=== PATIENT | male | born 1955 | race Caucasian/White ===

== ENCOUNTER 2018-11-20 18:03 | Observation (INO) ==
--- NOTE | 2018-11-20 18:41 | ED.PDOC ---
General ED Provider: Dr. SHILO KRUSE Chief Complaint: Shortness of Air Stated Complaint: Severe SOB. Cough, uncontrollable at times with worsening dyspnea. Patient stated his symptoms started as "head cold" a week ago. Has associated sinus congestion, mild sore throat, cough (non productive). Stated he developed increasing SOB with activity yesterday. Hx COPD. with more frequent use of his rescue inhaler. State he experienced pain in his chest wall with cough. Stopped smoking 22 years ago. Has felt chilled. No Fever documented Time Seen by Physician: 18:20 Mode of Arrival: Walk-In Information Source: Patient Exam Limitations: No limitations Primary Care Provider: JASON KEN Nursing and Triage Documentation Reviewed and Agree: Yes Does patient meet sepsis criteria?: No System Inflammatory Response Syndrome: Not Applicable Sepsis Protocol: For patient's 13 years and over: Temp is 96.8 and below OR 101 and greater Pulse >90 BPM Resp >20/minute Acutely Altered Mental Status Are patient's symptoms suggestive of a new infection, such as: -Pneumonia -Skin, Soft Tissue -Endocarditis -UTI -Bone, Joint Infection -Implantable Device -Acute Abdominal Infection -Wound Infection -Meningitis -Blood Stream Catheter Infection -Unknown Respiratory Complaint Exam - Respiratory Complaint/Exam Onset/Duration: several days Symptoms Are: Still present Timing: Constant Initial Severity: Moderate Current Severity: Moderate Location: Throat, Chest Character: Reports: Dry cough, Bronchospastic cough Aggravating: Reports: Weather, Deep breaths, Recumbent position Alleviating: Reports: Bronchodilators, Upright position Associated Signs and Symptoms: Reports: Dyspnea, Chills. Denies: Rapid breathing, Fever, Chest pain, Pleuritic chest pain, Wheezing, Hemoptysis, Dizziness, Calf pain, Calf swelling, Edema, URI, Nasal congestion, Hoarseness, Sinus discomfort, Vomiting, Sore throat, Weight loss, Decreased oral intake, Increased thirst, Increased appetite, Increased urination History of Healthcare-Acquired Pneumonia: No Related Surgical History: Reports: None Pulmonary Embolism Risk Factors: None Cardiac Risk Factors: Reports: None Pseudomonas Risk Factors: Reports: None Tuberculosis Risk Factors: Reports: None Status Asthmaticus Risk Factors: Reports: None Home Oxygen Use: No Recent Stress Test: No Recent Echo/LV Function: No Current Antibiotic Use: No Current Asthma Medication Use: Yes Respiratory Distress: Mild Inadequate Respiratory Effort: Yes Dysphagia Present: No Stridor Present: No JVD Present: No Accessory Muscle Use: No Retractions: Not Present Diminished Breath Sounds: Yes Prolonged Respiration: Expiratory phase Sinus Tenderness: None Grunting Respirations: No Kussmaul Respirations: No Differential Diagnoses: COPD Exacerbation, Pulmonary Embolism, Mycoplasma, URI Non-Traumatic Chest Pain Syncope: EKG Performed Review of Systems - Review Of Systems Constitutional: Reports: Chills Eyes: Reports: No symptoms Ears, Nose, Mouth, Throat: Reports: No symptoms Respiratory: Reports: No symptoms, Cough, Orthopnea, Short of air, Wheezing Cardiac: Reports: No symptoms GI: Reports: No symptoms : Reports: No symptoms Musculoskeletal: Reports: No symptoms Skin: Reports: No symptoms Neurological: Reports: No symptoms Endocrine: Reports: No symptoms Hematologic/Lymphatic: Reports: No symptoms All Other Systems: Reviewed and Negative Past Medical History - Past Medical History Previously Healthy: Yes Endocrine: Reports: None Cardiovascular: Reports: None Respiratory: Reports: None Hematological: Reports: None Gastrointestinal: Reports: None Genitourinary: Reports: None Neuro/Psych: Reports: None Musculoskeletal: Reports: None Cancer: Reports: None - Surgical History General Surgical History: Reports: None - Family History Family History: Reports: None - Social History Smoking Status: Former smoker Hx Substance Use: No Alcohol Screening: None Physical Exam - Physical Exam Appearance: Ill-appearing, Obese Ill-appearing: Moderate Pain Distress: Moderate Eyes: LENA, EOMI, Conjunctiva clear ENT: Ears normal, Nose normal, Oropharynx normal Neck: Supple Respiratory: Airway patent, Breath sounds clear, Breath sounds diminished, Wheezes Cardiovascular: RRR, Pulses normal, No rub, No murmur GI/: Soft, Nontender, No masses, Bowel sounds normal, No Organomegaly Musculoskeletal: Normal strength, ROM intact, No edema, No calf tenderness Skin: Warm, Dry, Normal color Neurological: Sensation intact, Motor intact, Reflexes intact, Cranial nerves intact, Alert, Oriented Psychiatric: Affect appropriate, Mood appropriate Interpretation - EKG Interpretation Time of EKG #1: 19:02 Rhythm: Sinus Ectopy: PVCs, PACs ST Segment: Normal Interpretation: NSR with occas pvcs and pacs Physician Notification - Case Discussed Physician Notified: Dr Corbett-discussed case/transferred care/accepted Time of Notification: 19:15 Course - Course Hematology/Chemistry: 11/20/18 19:20 Orders, Labs, Meds: Lab Review 11/20/18 19:20 WBC 7.73 RBC 4.12 L Hgb 12.0 L Hct 36.5 L MCV 88.6 MCH 29.1 MCHC 32.9 RDW Coeff of Anais 15.0 H Plt Count 254 Immature Gran % (Auto) 0.3 Neut % (Auto) 64.3 Lymph % (Auto) 19.7 Murray % (Auto) 8.3 Eos % (Auto) 7.0 Baso % (Auto) 0.4 Immature Gran # (Auto) 0.0 Neut # (Auto) 5.0 Lymph # (Auto) 1.5 Murray # (Auto) 0.6 Eos # (Auto) 0.5 Baso # (Auto) 0.0 Orders Category Date Time Status ABG DRAW REQUEST Routine CARDIO 11/20/18 18:43 Ordered ABG DRAW REQUEST Stat CARDIO 11/20/18 18:38 Ordered ABG DRAW REQUEST Stat CARDIO 11/20/18 18:43 Ordered ABG DRAW REQUEST Stat CARDIO 11/20/18 18:45 Ordered EKG-(ED ONLY) Stat CARDIO 11/20/18 18:38 Ordered NEBULIZER TREATMENT Stat CARDIO 11/20/18 18:41 Ordered NEBULIZER TREATMENT Stat CARDIO 11/20/18 18:46 Ordered OXYGEN Routine CARDIO 11/20/18 18:38 Ordered IV [ED IV/MEDIPORT/POWERPORT] .ONCE EMERGENCY 11/20/18 18:38 Active ABG Stat LAB 11/20/18 18:38 Ordered ABG Stat LAB 11/20/18 18:45 Ordered BLOOD CULTURE (ED ONLY) Stat LAB 11/20/18 19:20 Received CBC W/ AUTO DIFF Stat LAB 11/20/18 19:20 Completed CMP [COMPREHENSIVE METABOLIC PANEL] Stat LAB 11/20/18 19:20 Received D-DIMER Stat LAB 11/20/18 19:20 Received ESR Stat LAB 11/20/18 19:20 Received FLU A & B MOLECULAR [FLU A/B MOLECULAR] Stat LAB 11/20/18 19:20 Received LACTIC ACID Stat LAB 11/20/18 19:20 Received MAGNESIUM Stat LAB 11/20/18 19:20 Received NT-PROBNP Stat LAB 11/20/18 19:20 Received PARTIAL THROMBOPLASTIN TIME Stat LAB 11/20/18 19:20 Received PT WITH INR Stat LAB 11/20/18 19:20 Received RAPID STREP SCREEN [MOLECULAR GROUP A STREP] Stat LAB 11/20/18 19:20 Received RSV Stat LAB 11/20/18 19:20 Received SPUTUM CULTURE Stat LAB 11/20/18 18:41 Uncollected TROPONIN I Stat LAB 11/20/18 19:20 Received UA [URINALYSIS C & S IF INDICATED] Stat LAB 11/20/18 18:57 Ordered 0.9 % Sodium Chloride [Saline Flush] MEDS 11/20/18 18:42 Active 1 syr IVF PRN PRN Budesonide [Pulmicort 0.5 mg/2 ml] MEDS 11/20/18 18:42 Discontinued 1 vial NEB ONCE STA Hydrocortisone Sod Succ/Pf [Solu-Cortef 250 mg] MEDS 11/20/18 19:04 Discontinued 125 mg IVP ONCE STA Ipratropium/Albuterol Neb [Duoneb] MEDS 11/20/18 18:42 Discontinued 1 vial NEB ONCE STA Sodium Chloride 0.9% [Sodium Chloride] 1,000 ml MEDS 11/20/18 18:42 Active IV 125 mls/hr CHEST, 1V AP ONLY Stat RADS 11/20/18 18:38 Taken Medications Generic Name Dose Route Start Last Admin Trade Name Freq PRN Reason Stop Dose Admin Sodium Chloride 1,000 mls @ 125 mls/hr 11/20/18 18:42 11/20/18 19:12 Sodium Chloride IV 11/21/18 02:41 125 mls/hr .Q8H STA Administration Sodium Chloride 1 syr 11/20/18 18:42 11/20/18 19:12 Saline Flush IVF 1 syr PRN PRN Administration To flush IV Discontinued Medications Generic Name Dose Route Start Last Admin Trade Name Freq PRN Reason Stop Dose Admin Albuterol/Ipratropium 1 vial 11/20/18 18:42 Duoneb NEB 11/20/18 18:43 ONCE STA Budesonide 1 vial 11/20/18 18:42 Pulmicort 0.5 Mg/2 Ml NEB 11/20/18 18:43 ONCE STA Hydrocortisone Sodium Succinate 125 mg 11/20/18 19:04 11/20/18 19:14 Solu-Cortef 250 Mg IVP 11/20/18 19:05 125 mg ONCE STA Administration Vital Signs: Temp Pulse Resp BP Pulse Ox 11/20/18 18:04 98.2 F 82 20 159/89 H 92 L Departure - Departure Allergies/Adverse Reactions: Allergies hydrocodone [From Lortab] Adverse Reaction (Verified 02/11/18 13:35) rofecoxib [From Vioxx] Adverse Reaction (Verified 02/11/18 13:35) tramadol Adverse Reaction (Verified 02/11/18 13:35)
[2018-11-20] MEDS ORDERED: PULMICORT 0.5 MG/2 ML NEB STA (18:42)
[2018-11-20] MEDS ORDERED: SODIUM CHLORIDE 1,000 ML IV STA (18:42)
[2018-11-20] MEDS ORDERED: DUONEB NEB STA (18:42)
[2018-11-20] MEDS ORDERED: SOLU-CORTEF 250 MG IVP STA (19:04)
--- NOTE | 2018-11-20 19:53 | DI ---
EXAM: Single view of the chest. History: Short of breath and cough . Comparison: Chest radiograph 05/24/2016 Findings: Heart size is normal. Left lower lobe subsegmental atelectasis or pneumonia. No apprecia ble pleural fluid and no pneumothorax. No acute osseous abnormalities. Impression: Left lower lobe subsegmental atelectasis or pneumonia
[2018-11-20] MEDS ORDERED: TYLENOL PO PRN (21:11)
[2018-11-20] MEDS ORDERED: DUONEB NEB PRN (21:11)
[2018-11-20 22:34] VITALS: BMI 36.3
[2018-11-21] MEDS: SODIUM CHLORIDE 0.9%-KCL 20 MEQ 1,000 ML IV SCH ×3 (04:35→17:31)
[2018-11-21] MEDS: SOLU-MEDROL 125 MG IVP SCH ×3 (04:38→20:13)
[2018-11-21] MEDS: DUONEB NEB SCH ×4 (06:13→19:44)
[2018-11-21] MEDS: VIT C PO SCH (08:51)
[2018-11-21] MEDS: VIT A PO SCH (08:51)
[2018-11-21] MEDS: COPPER PO SCH (08:51)
[2018-11-21] MEDS: ZINC PO SCH (08:51)
[2018-11-21] MEDS: VIT E PO SCH (08:51)
[2018-11-21] MEDS: SYMBICORT 160-4.5 MCG INHALER IH SCH ×2 (08:51→20:22)
[2018-11-21] MEDS: PRAVACHOL PO SCH (08:53)
[2018-11-21] MEDS: MULTIVITAMIN TABLET PO SCH (08:53)
[2018-11-21] MEDS: HYDROCHLOROTHIAZIDE PO SCH (08:53)
[2018-11-21] MEDS: PRADAXA PO SCH ×2 (08:57→20:14)
[2018-11-21] MEDS ORDERED: LOVENOX SUBCUT SCH (09:00)
[2018-11-21] MEDS ORDERED: VITAMIN D PO SCH (09:00)
[2018-11-21] MEDS ORDERED: NON-FORMULARY MEDICATION (Dabigatran Etexilate Mesylate [Pradaxa] 150 MG) PO SCH (09:00)
[2018-11-21] MEDS ORDERED: PROTONIX PO SCH (09:00)
--- NOTE | 2018-11-21 10:32 | US ---
EXAM: Ultrasound venous Doppler right and left lower extermity HISTORY: Swelling COMPARISON: None TECHNIQUE: Venous duplex ultrasound of the right and left lower extremity was performed using color, christianson-scale, and Doppler flow imaging. FINDINGS: There is normal color flow and compression of the right and left common femoral, greater s aphenous, profunda femoral, femoral, popliteal, peroneal, posterior tibial, and anterior tibial veins without evidence of intraluminal thrombus. No reflux is identified. IMPRESSION: No right or left lower extremity deep venous thrombosis.
[2018-11-21] MEDS: PROTONIX PO SCH (15:49)
--- NOTE | 2018-11-21 16:54 | CT ---
EXAM: CT abdomen pelvis without contrast HISTORY: Microscopic hematuria COMPARISON: None TECHNIQUE: CT abdomen pelvis performed without intravenous contrast. Coronal and sagittal reformatt ed images obtained. FINDINGS: Mild bibasilar atelectasis. Mild emphysematous change. No free air. No acute abnormalit ies of the bones. Degenerative change in the spine. Heart normal in size. Liver diffusely decrease d attenuation. Patient status post cholecystectomy. Pancreas unremarkable. Spleen unremarkable. A drenals unremarkable. Aorta normal in caliber. Mild atherosclerosis. Bladder unremarkable. Small fat-containing left inguinal hernia. No lymphadenopathy or ascites. Small hiatal hernia. No dilate d loops small bowel. Appendix not visualized. Colonic diverticulosis. Multiple bilateral nonobstru cting renal calculi measuring up to 8 mm. Right kidney and 10 mm. Left kidney. No hydronephrosis. Nonspecific bilateral perinephric stranding, may reflect senescent change. No calculi visualized in the normal course of the ureters. Bladder unremarkable. Small to moderate fat-containing periumbili swapna hernia. IMPRESSION: 1. Bilateral nephrolithiasis. No hydronephrosis. 2. Nonspecific bilateral perinephric stranding, may reflect senescent change. 3. Colonic diverticulosis. 4. Hepatic steatosis.
[2018-11-21] MEDS: CYMBALTA PO SCH (17:05)
[2018-11-21] MEDS: BACTRIM DS 800/160 MG PO SCH ×2 (17:30→20:15)
[2018-11-21] MEDS ORDERED: TYLENOL PO PRN (19:21)
[2018-11-21] MEDS: ROBITUSSIN DM SYRUP PO PRN (20:14)
[2018-11-21] MEDS: ATIVAN PO PRN (23:21)
[2018-11-22] MEDS: DUONEB NEB SCH ×4 (04:57→20:36)
[2018-11-22] MEDS: ROBITUSSIN DM SYRUP PO PRN ×3 (05:35→20:40)
[2018-11-22] MEDS: SOLU-MEDROL 125 MG IVP SCH ×2 (05:35→13:26)
[2018-11-22] MEDS: PROTONIX PO SCH ×2 (05:35→14:53)
[2018-11-22] MEDS: ATIVAN PO PRN ×2 (05:35→22:48)
[2018-11-22] MEDS: SYMBICORT 160-4.5 MCG INHALER IH SCH ×2 (08:35→20:39)
[2018-11-22] MEDS: BACTRIM DS 800/160 MG PO SCH ×2 (08:38→20:39)
[2018-11-22] MEDS: HYDROCHLOROTHIAZIDE PO SCH (08:39)
[2018-11-22] MEDS: MULTIVITAMIN TABLET PO SCH (08:39)
[2018-11-22] MEDS: ZINC PO SCH (08:40)
[2018-11-22] MEDS: SODIUM CHLORIDE 0.9%-KCL 20 MEQ 1,000 ML IV SCH (08:40)
[2018-11-22] MEDS: VIT E PO SCH (08:40)
[2018-11-22] MEDS: COPPER PO SCH (08:40)
[2018-11-22] MEDS: VIT C PO SCH (08:40)
[2018-11-22] MEDS: VIT A PO SCH (08:40)
[2018-11-22] MEDS: PRAVACHOL PO SCH (08:40)
[2018-11-22] MEDS: PRADAXA PO SCH ×2 (08:41→20:39)
--- NOTE | 2018-11-22 13:35 | STRESSMOD ---
Date of Test: 11/22/18 Ordering Physician: DR. GEORGE LOPEZ, HOSPITALIST Occupation: [employer] Reason for Exam: SOA, HTN Smoking History: QUIT 22 YRS AGO Height: 71" Weight: 261 LBS Current Medications: DUONEB, SYMBICORT, PRADAXA, CYMBALTA, HCTZ, PROTONIX, PRAVACHOL Resting EKG: SINUS RHYTHM, PVC'S, NO ACUTE CHANGES Target Heart Rate: 135/159 S-T SEGMENT STAGE MPH/GRADE HEART RATE BPM BLOOD PRESSURE mmhg RHYTHM +/- ELEVATION DEPRESSION SYMPTOMS At Rest 110 BPM 132/60 MMHG SR X NONE 1 1.7/0% 125 BPM 130/60 MMHG SR X NONE 2 1.7/5% 3 1.7/10% 4 2.5/12% 5 3.4/14% Immediately After 133 BPM SR X SHORT OF AIR Minutes Post Exercise 2:00 108 BPM 140/60 MMHG SR X NONE Minutes Post Exercise 5:00 112 BPM 140/60 MMHG SR X NONE DURATION OF EXERCISE: 4:41 MAXIMUM HEART RATE REACHED: 133 BPM REASON FOR TERMINATION: SHORT OF AIR 87% OXYGEN SATURATION WITH EXERCISE ON ROOM AIR METS 3.8 INTERPRETATION: 1. TEST NEGATIVE FOR ISCHEMIC ST-T WAVE CHANGES 2. NO CHEST PAIN OR DISCOMFORT 3. HYPOXEMIA AT REST AND WITH EXERCISE 4. PVC'S LESS FREQUENT WITH EXERCISE 5. BLOOD PRESSURE RESPONSE: NORMAL NORMAL LEFT VENTRICULAR CONTRACTILITY--RESTING AND POST EXERCISE 2 "D" "M" MODE ECHO: LEFT VENTRICULAR HYPERTROPHY/ NORMAL LEFT VENTRICULAR CONTRACTILITY AND ENLARGED RV/LA CAVITIES MTDD
--- NOTE | 2018-11-22 14:48 | CONS ---
DATE OF CONSULTATION: 11/21/18 REASON FOR CONSULTATION: Severe shortness of air with exertion. Cough. Chest pain with cough. HISTORY OF PRESENT ILLNESS: 63 year old white male came to the emergency room with shortness of air and also had cough, congestion and worsening of his head cold. It started probably a week prior to hospitalization. The patient also had some sinus congestion and sore throat with non-productive cough. The patient has history of COPD and uses rescue inhaler. The patient's primary care Blake Oliva Nurse Practitioner. The patient used to go to Dr. Ortiz before. REVIEW OF SYSTEMS: CONSTITUTIONAL: No night sweats. Fatigue and weakness. No fever or chills. HEENT: Eyes: No visual changes. No eye pain. No eye discharge. ENT: Sinus drainage. No epistaxis. No sinus pain. No sore throat. No odynophagia. No ear pain. No congestion. RESPIRATORY: Dry cough and congestion. No hemoptysis. Shortness of breath on exertion, unable to lie flat. CARDIOVASCULAR: No angina symptoms. No CHF symptoms. No atypical chest pain for CAD. No palpitations. No orthopnea. GASTROINTESTINAL: No abdominal pain. No nausea or vomiting. No diarrhea or constipation. No hematemesis. No hematochezia. Reflux type of symptoms at times. GENITOURINARY: No urgency. No frequency. No dysuria. No hematuria. No obstructive symptoms. No discharge. No pain. No significant abnormal bleeding. MUSCULOSKELETAL: History of neck surgery. . INDEPENDENT FILM MAKER: No blackout, no dizziness, no headache. . PSYCHIATRIC: Not anxious. History of depression. No suicidal thoughts. No homicidal thoughts. SKIN: No rash. No lesions. No wounds. ENDOCRINE: No unexplained weight loss. No weight gain. HEMATOLOGIC/LYMPHATIC: No anemia. No purpura. No petechiae. No prolonged or excessive bleeding. No palpable lymph nodes. MEDICATIONS: Albuterol ProAir HFA Symbicort Pradaxa Duloxetine Pantoprazole Pravastatin ALLERGIES: Hydrocodone Rofecoxib Tramadol PAST MEDICAL HISTORY: Chronic lung disease Pulmonary embolism (on Pradaxa) Reflux disease Dyslipidemia Asthma COPD Hypertension Depression PAST SURGICAL HISTORY: Hernia repair Cholecystectomy Appendectomy C-spine surgery SOCIAL/PERSONAL/FAMILY HISTORY: The patient is and lives with the . Nonsmoker, now. Quit smoking 1996. He wears two liters of oxygen at night. Does all activity of daily living. Still working more than 40 hours a week. Family History: [place]. PHYSICAL EXAMINATION: GENERAL: The patient is oriented to time, place and person. VITAL SIGNS: Temperature 97.9, pulse 85, respiratory rate 18, blood pressure 145/86, pulse ox 95% on room air. The patient weights 261 pounds and BMI is 36. HEENT: Head normocephalic, atraumatic. Eyes: Extraocular muscles are intact. Pupils are equal, round and reactive to light and accommodation. Ears: No lesions. Nose appeared normal. Throat: No exudate or erythema. NECK: Supple. No JVP, no carotid bruit. No lymphadenopathy or thyromegaly. LUNGS:Decreased breath sounds with mild expiratory wheeze. Percussion note normal. Chest symmetrical. HEART: PMI not palpable on auscultation. S1, S2, no S3. No murmurs. No cyanosis or clubbing. No ascites. Pulses: Dorsalis pedis and posterior tibial pulses +2 bilaterally. ABDOMEN: Soft. Nontender. Bowel sounds active. No CVA tenderness. No mass felt. EXTREMITIES: No edema. Full range of motion of all extremities, equal. NEUROLOGIC: No focal deficit. Cranial nerves II through XII are grossly intact. No headache, no double vision or headache. SKIN: Not dry. Intact. Turgor - normal. LYMPHATIC: No palpable lymph nodes/no lymphedema. MUSCULOSKELETAL: Normal joints with no swelling. Muscle tone is normal. LABS: Hgb 12.7, 38, WBC 9,000 normal differential, creatinine 0.6, BUN 11, potassium 3.6, GFR estimated 132cc per minute, TSH normal. EKG sinus rhythm with PVC and PAC. ESR 38. D. dimer 300.46. ProBNP 58.700. Triglycerides 130. Cholesterol 172, LDL 114, HDL 32.5. Flu A and B negative. Room Air AB% saturation, Hc03 27.1. PH 7.432, pc02 40.7, p02 73. Troponin less than 0.012. Chest x-ray LLL subsegmental atelectasis or pneumonia. ASSESSMENT: 1. COPD/exacerbation. 2. Shortness of breath from COPD/sedentary lifestyle. 3. BMI greater than 30. 4. History of pulmonary embolism 5. Dyslipidemia. RECOMMENDATIONS: 1. Agreed with telemetry. 2. Will do echocardiogram to evaluate LV function. 3. Also do stress echo as the patient has risk factors like sedentary lifestyle, obesity, dyslipidemia, family history of heart disease. 4. Will also do PFT. 5. BNP is okay, will follow. 6. Lipid profile. 7. Counseling for weight loss done. The patient's conditions seems to be stable. Thanks for referral. Will follow. MTDD
[2018-11-22] MEDS: CARDIZEM PO SCH ×2 (14:53→20:39)
[2018-11-22] MEDS: CYMBALTA PO SCH (16:33)
[2018-11-23] MEDS: DUONEB NEB SCH ×3 (04:53→13:59)
[2018-11-23] MEDS: PROTONIX PO SCH ×2 (05:42→15:17)
[2018-11-23] MEDS: ROBITUSSIN DM SYRUP PO PRN (06:34)
[2018-11-23] MEDS: SYMBICORT 160-4.5 MCG INHALER IH SCH (09:22)
[2018-11-23] MEDS: VIT E PO SCH (09:23)
[2018-11-23] MEDS: COPPER PO SCH (09:23)
[2018-11-23] MEDS: VIT A PO SCH (09:23)
[2018-11-23] MEDS: ZINC PO SCH (09:23)
[2018-11-23] MEDS: VIT C PO SCH (09:23)
[2018-11-23] MEDS: MULTIVITAMIN TABLET PO SCH (09:24)
[2018-11-23] MEDS: PRAVACHOL PO SCH (09:24)
[2018-11-23] MEDS: CARDIZEM PO SCH ×2 (09:24→15:17)
[2018-11-23] MEDS: BACTRIM DS 800/160 MG PO SCH (09:24)
[2018-11-23] MEDS: HYDROCHLOROTHIAZIDE PO SCH (09:24)
[2018-11-23] MEDS: PRADAXA PO SCH (09:29)
--- NOTE | 2018-11-23 13:04 | PN ---
DATE OF SERVICE: 11/22/2018 SUBJECTIVE: 63 year old male who was admitted to the hospital because of increasing shortness of breath worse the day before, however the patient declined. The patient was driving home when he experienced more shortness of breath prompting him to come to the emergency room. The patient also had repetitive cough and this began about a week ago with mild sore throat. No fever. The patient does have chest pain with the coughing. He stopped smoking some 20 years ago. This patient was admitting 11/20/2018. The patient seemed to have problems sleeping, most likely due to the Methylprednisolone given every 8 hours IV. He seemed restless and with nightmare dreams. The Methylprednisolone had been discontinued. The dose on at 1:26 p.m. was not given. The patient did undergo stress echo today and the stress test was negative for ischemia. During the course of the exercise the patient was noted to have desaturation with an oxygen saturation of 87. Three step test also reconfirmed that. This patient may need some home oxygen for now until the other medical conditions have improved. Most significant would be the obesity. This patient's BMI is 36.4. He is 261 pounds at 5'11". The patient was able to walk for four minutes and 41 seconds. LUNGS: Clear to auscultation, although diminished and no wheezing at all. HEART: Normal sinus rhythm. NECK: No masses, no bruit. ABDOMEN: Markedly protuberant, soft with no significant tenderness. LABS: Arterial blood gases done at rest with FIO2 21%, oxygen saturation 92, pH 7.415, PCO2 32.4, PO2 63.0, HCO3 20.8, total CO2 22, base excess minus 4, sodium is slightly lower, but no clinical significance, as well as potassium. Blood sugar elevated 398.9. It was 132.5 on admission. This patient may have an insulin resistance, will measure fasting Insulin. We will also get an A1C to help determine. C-reactive protein is now down to 8.35 from 25. This patient has some tachycardia and Dr. Hewitt, Consulting Freight Adjuster, initiated him on Cardizem 45 mg twice a day. He did not feel that the patient should go home today and considered sending him tomorrow. I had discussed this with the patient with regards to staying. He was admitted under observation, but now he is over that time. MTDD
--- NOTE | 2018-11-23 13:22 | PN ---
DATE OF VISIT: 11/23/18 The patient is alert and claimed to be feeling better. He is still using 2 liters of nasal oxygen. LUNGS: Clear to auscultation in both sides, somewhat diminished. HEART: Normal sinus rhythm. ABDOMEN: Protuberant. He still did not sleep very well in spite of the fact that the Methylprednisolone had been discontinued. It make a few more days probably for that adverse effect from the Methylprednisolone. His was asking whether he should take Benadryl in order to help him sleep and I did tell her that Benadryl probably is not a better choice. He should try over the counter Melatonin at 10 mg at bedtime. There may still be a continuation of the adverse effects of the Methylprednisolone. His WBC is now done to 19,650 and may still be the results of Methylprednisolone. His WBC was normal on admission and the next day. It did rise to 21,750 on the , yesterday. Manual differential yesterday showed bans at 3%, normal. Neutrophils % is 88 and lymphocytes 5. Fasting blood sugar today is down to 214 and A1C is 6.33. I still do not have the results of the fasting Insulin. Total protein and Liver panel normal. I did also tell him that his repeat urinalysis still shows blood, but no other abnormalities. He needs to see a kidney doctor. He is also scheduled to see Dr. Montejo, [facility]. His procalcitonin yesterday was less than 0.05, the same as admission. This patient will be prescribed nasal oxygen at 2 liters per minute and also during the night time. He does not need it during the day. He may need the oxygen if he has exertional dyspnea or to prevent exertional dyspnea. The RBC had risen to 50 to 100 from 30 to 50. The patient has fatty liver on CT scan. VITAL SIGNS: At 10 a.m. today, temperature 98.5, pulse 82, earlier it was 87, blood pressure 133/85, respiratory rate 18, oxygen saturation 94. I don't know if he had oxygen at that time or not since it was not noted on the chart. Again, this patient is advised to lose weight. Follow a simpler diet of salad with meat, either chicken, pork, beef, turkey, about 6-8 ounces every meal, lunch and supper. No sodas, no wheat of any kind, bread or pasta. He should avoid [place] potato. He may use sweet potato instead of the white potato. This patient is scheduled to see Dr. Hewitt and I will see him after that. I had indicated to Dr. Hewitt that he would likely change to his services and I don't have any problem, however the patient, as well as the had not indicated to me that they want to do that at this time. MTDD
[2018-11-23] MEDS: CYMBALTA PO SCH (17:17)
[2018-11-23 18:28] VITALS: BP 124/76; TEMP 98.3
--- NOTE | 2018-11-26 12:35 | ECHO2D ---
Date of Exam: 11/22/18 Ordering Physician: DR. GEORGE LOPEZ, HOSPITALIST/ DR. ZULEYKA WILSON Room #: 121 Reason for Echo: SOB, COPD, H/O PULMONARY EMBOLISM M-Mode Normal Adult Results LV Dimensions Normal Adult Results AoV Opening excursions >1.6 >1.6 LVEDD-base- 3.5-5.8 4.4 Ao root dimensions 2.0-3.7 3.4 LVESD-base- 3.1-4.6 L. Atrium dimensions 1.9-3.8 4.2 Post. Wall thickness 0.8-1.1 1.2 IV septum (thickness) 0.7-1.2 1.3 Post. Wall excursion 0.72-1.3 NORMAL Septal motion NORMAL Systolic motion R. Ventricular cavity 1.5-2.0 3.8 LVEF 60% >60% Paradoxical septal wall motion NORMAL 2-D : 2-D M Mode Echocardiogram was performed using apical four chamber and left parasternal long and short axis views. Mitral, tricuspid and aortic valves appear to be normal. Contractility of the left ventricle seems to be normal, so is the cavity size. ENLARGED LEFT ATRIAL AND RIGHT VENTRICLE CAVITIES. Aortic root appears to be normal. There is no pericardial effusion. There is no thrombus noted in the left ventricle or left atrial cavity. No mitral valve prolapse noted. M-MODE: MV: NORMAL AV: NORMAL TV: NORMAL PV: CHAMBER SIZE: ENLARGED LEFT ATRIAL AND RIGHT VENTRICLE CAVITIES WALL MOTION: NORMAL PERICARDIUM: NORMAL INTERPRETATION: 1. LEFT VENTRICULAR HYPERTROPHY WITH ENLARGED LEFT ATRIAL CAVITY (4.2 CM) 2. ENLARGED RIGHT VENTRICLE CAVITy 3. NORMAL LEFT VENTRICULAR CONTRACTILITY 4. NORMAL VALVES MTDD
--- NOTE | 2018-11-26 12:38 | ECHOSTRESS ---
Date of Exam: 11/22/18 Ordering Physician: DR. GEORGE LOPEZ, HOSPITALIST/ DR. ZULEYKA WILSON Reason for Echo: SOB, PULMONARY EMBOLISM, COPD, STRESS TEST --NO ISCHEMIA M-Mode Normal Adult Results LV Dimensions Normal Adult Results AoV Opening excursions >1.6 LVEDD-base- 3.5-5.8 Ao root dimensions 2.0-3.7 LVESD-base- 3.1-4.6 L. Atrium dimensions 1.9-3.8 Post. Wall thickness 0.8-1.1 IV septum (thickness) 0.7-1.2 Post. Wall excursion 0.72-1.3 Septal motion Systolic motion R. Ventricular cavity 1.5-2.0 LVEF 60% Paradoxical septal wall motion 2-D: NORMAL LEFT VENTRICULAR CONTRACTILITY--RESTING AND POST EXERCISE M-MODE: MV: AV: TV: PV: CHAMBER SIZE: WALL MOTION: NORMAL LEFT VENTRICULAR CONTRACTILITY--RESTING AND POST EXERCISE PERICARDIUM: INTERPRETATION: 1. NORMAL LEFT VENTRICULAR CONTRACTILITY--RESTING AND POST EXERCISE MTDD
--- NOTE | 2018-11-29 14:55 | HP ---
DATE OF SERVICE: 11/20/18 CHIEF COMPLAINT: Cough and shortness of breath HISTORY OF PRESENT ILLNESS: The patient began experiencing common cold symptoms with nasal congestion and fullness of the head. He later developed a sore throat. No fever but with increasing shortness of breath worse the day before. mentioned about bringing him to the emergency room but the patient declined. He was driving home on the day of presentation to the emergency room from his work and experienced more shortness of breath prompting the emergency room visit. The patient does have pain on the chest wall with cough but no chest pain. He works for [employer]. He doesn't have very much chemical exposure as he described his work. He was seen at 6:04 in the emergency room. Labs at 7:20 11/20/18 normal WBC 7,730, slightly lower RBC, Hgb and hct slight to moderate. MCV 88.6, MCH 29.1, RDW 15 slightly above upper normal of 14.8. D-Dimer 300.46, coagulation profile is normal, arterial blood gasses FiO2 21, oxygen saturation 95, pH 7.432, pCO2 40.7, pO2 73.0, HCO3 27.1, Total CO2 28, base excess 3+. Chemistry has some slight abnormalities but not significantly significant. Potassium 3.06, blood sugar 132.5, C reactive Protein 25.14. BUN 58.7, Procalcitonin normal less than 0.05. Chest x-ray left lower lobe some segmental atelectasis and or pneumonia. The patient while in the ER receiving Pulmicort Nebulizer at 6:42pm and Hydrocortisone Succinate 125mg at 7:04. Also had IV of normal saline plus Nebulizer consisting of Albuterol Ipratropium (DUO NEBS). The ER physician felt that the patient needed further observation and so he was admitted to the hospital and there observation. PAST MEDICAL HISTORY/PAST SURGICAL HISTORY: Hypertension, on medication History of COPD and had pulmonary function tests and was also told that he had asthma by the previous family provider History of pulmonary emboli, multiple but no signs of DVT. He is on anticoagulation from the PE; Pradaxa 150mg twice a day Previous cervical fusion Appendectomy Cholecystectomy Hernia surgery Finger surgery Foreign body on his eye and that was removed. He did see a doctor . FAMILY HISTORY: Brother had lung carcinoma as well as diabetes and that brother had a stroke Father had renal cancer. History of Parkinsonism Mother Myocardial infarct and from the myocardial infarction Members of the family had hypertension SOCIAL HISTORY: The patient is and works for [employer] and traveling. He had stopped smoking some 22 years ago. He used to be very skinny according to his but had gained weight since he had stopped smoking. He is now 261 pounds, BMI 36.4. MEDICATIONS: Multivitamins plus minerals plus lycopene 1 daily Dabigatran 150mg twice a day Protonix 40mg twice a day Hydrochlorothiazide 12.5mg daily Pravastatin 40mg daily Symbicort 160/4.5mg one puff twice a day His and him claim that he does two puffs twice a day Vitamin A/Vitamin C and Vitamin E plus Zinc and Copper Vision formula one capsule daily Cymbalta 30mg every evening Vitamin D three 2,000 units daily Albuterol Sulfate two puffs Q 4 hours PRN ALLERGIES: Hydrocodone Tramadol Rofecoxib REVIEW OF SYSTEMS: CONSTITUTIONAL: The patient has some fatigue because of the shortness of breath but no fever, no chills and no vomiting. DOCTOR OF PHARMACY: The patient did complain of headache but denies any visual disturbances. The weakness of greater left to right sides and no stiffness of the neck. VISUAL SYSTEM: No blurred vision, double vision or loss of vision. AUDITORY: Denies any ringing of the ears, no significant loss of hearing, pain or drainage. RESPIRATORY: The patient has cough and repetitive, nonproductive. Chest wall pain. Shortness of breath but no cyanosis. CARDIOVASCULAR: The patient denies any chest pain or chest tightness. The patient does have cough with some shortness of breath on exertion GI: The patient has no nausea or vomiting or diarrhea. He did have a history of GERD and is taking Protonix 40mg twice a day : The patient initially had no problems with urination but did complain of some burning in the course of urination but no fever. No frequency. Denies any hesitancy or urgency. MUSCULOSKELETAL: The patient does have neck pain and had previous surgery. He is taking Tramadol for the pain. INTEGUMENT: The patient has no rash or pruritus. No ecchymosis ENDOCRINE: The patient denies any polyuria or polydipsia. He is however obese. HEMATOLOGY: Denies any prolonged bleeding after surgical intervention or injury. He did have a history of pulmonary emboli without any demonstrable thrombosis in the lower extremities or upper. PSYCHIATRIC: The patient has history of depression on Cymbalta. Affect appears to be normal and reasoning is good. PHYSICAL EXAMINATION: GENERAL: We have a 63 year old male admitted to the hospital by the emergency room because of cough repetitive and short of breath. VITAL SIGNS: Temperature 97.9 oral, pulse 93, blood pressure 157/89 left arm, respiratory rate 22, oxygen saturation 94 at room air. 5'11, 261 pounds. The entry in the emergency room was 5'8 and 5'7 inches. HEAD: Unremarkable, scalp has no active dermatitis. FACE: Symmetrical and equal with no facial weakness. No tenderness in the frontal and maxillary sinus areas to palpation under pressure. EYE: Pupils are about 3mm in size, round and reactive. Conjunctivae slightly pale. MOUTH: Unremarkable. No inflammatory changes in the posterior phalangeal tena and no exudate. NECK: No adenitis or adenopathies and no tenderness. No bruit. CHEST: Essentially symmetrical and equal with limited expansion. LUNGS: Breath sounds are heard in both sides with rales or wheezing but diminished HEART: Heart is audible and regular, slightly tachycardiac, no murmurs. ABDOMEN: Markedly protuberant, soft with no significant tenderness. No guarding, bowel sounds are active. No masses palpable. No bruit. EXTERNAL GENITALIA: Not examined LOWER EXTREMITIES: Essentially symmetrical and equal. Anterior tibials are palpable. UPPER EXTREMITIES: Symmetrical and equal. ASSESSMENT: 1. Asthma with exacerbation 2. COPD 3. History of pulmonary emboli, multiple on Pradaxa 4. Hypertension on medication 5. Obesity, BMI 36.4 6. History of GERD on Pantoprazole 40mg twice a day 7. Moderate Anemia 8. History of Depression TIME SPENT: GREATER THAN 65 MINUTES MTDD
--- NOTE | 2018-11-30 08:59 | PN ---
CODING FOR BILLING The patient was seen a total of four times. He was a new consult, never seen him before. The coding is different for it. The first day is level 5, the rest intermediate for followups. DALE
--- NOTE | 2018-11-30 09:29 | CONS ---
DATE OF SERVICE: 11/22/18 CONSULT FOLLOWUP SUBJECTIVE: The patient was on consultation for shortness of breath evaluation. The patient had stress echo performed which was negative for ischemia but the patient's oxygen saturation dropped from 90% to 87%. He was extremely short of breath. There was no evidence of ischemic by ST-T waves. The PVCs were less frequent. The patient is going to need oxygen at home 2L. His PFT showed 50% of FEV1 with moderate restrictive disease. His BMI is 36, strongly advised to lose weight and advised to increase activity. Echo showed LVH with enlarged LA cavity and enlarged RV cavity, normal LV contractility noted. REVIEW OF SYSTEMS: (All negative at rest) CONSTITUTIONAL: No night sweats. No fatigue, malaise, lethargy. No fever or chills. HEENT: Eyes: No visual changes. No eye pain. No eye discharge. ENT: No runny nose. No epistaxis. No sinus pain. No sore throat. No odynophagia. No ear pain. No congestion. RESPIRATORY: No cough, no congestion. No hemoptysis. CARDIOVASCULAR: No angina symptoms. No CHF symptoms. No atypical chest pain for CAD. No palpitations. No shortness of breath. GASTROINTESTINAL: No abdominal pain. No nausea or vomiting. No diarrhea or constipation. No hematemesis. No hematochezia. GENITOURINARY: No urgency. No frequency. No dysuria. No hematuria. No obstructive symptoms. No discharge. No pain. No significant abnormal bleeding. MUSCULOSKELETAL: No musculoskeletal pain. No joint swelling. No arthritis. NEUROLOGICAL: No headache. No neck pain. No syncope. No seizures. No dizziness. PSYCHIATRIC: Not anxious. No depression. No suicidal thoughts. No homicidal thoughts. SKIN: No rash. No lesions. No wounds. ENDOCRINE: No unexplained weight loss. No weight gain. HEMATOLOGIC/LYMPHATIC: No anemia. No purpura. No petechiae. No prolonged or excessive bleeding. No palpable lymph nodes. PHYSICAL EXAMINATION: HEENT: Head normocephalic, atraumatic. Eyes: Extraocular muscles are intact. Pupils are equal, round and reactive to light and accommodation. Ears: No lesions. Nose appeared normal. Throat: No exudate or erythema. NECK: Supple. No JVD, no carotid bruit. No lymphadenopathy or thyromegaly. LUNGS: Clear to auscultation. Percussion note normal. Chest symmetrical. HEART: The patient has sinus tachycardia at rest. S1, S2, no S3. No murmurs. No cyanosis or clubbing. No ascites. Pulses: Dorsalis pedis and posterior tibial pulses +1 to +2 bilaterally. ABDOMEN: Soft. Nontender. Bowel sounds active. No CVA tenderness. No mass felt. EXTREMITIES: No edema. Full range of motion of all extremities, equal. NEUROLOGIC: No focal deficit. Cranial nerves II through XII are grossly intact. No headache, no double vision or headache. SKIN: Not dry. Intact. Turgor - normal. LYMPHATIC: No palpable lymph nodes/no lymphedema. MUSCULOSKELETAL: Normal joints with no swelling. Muscle tone is normal. RECOMMENDATIONS: 1. Discuss the case with the attending which I did. The patient is to lose weight. Counseling for weight loss done. 2. Cardizem 30 mg p.o. t.i.d. 3. Oxygen 2L/cannula/min at home. 4. Continue all the nebs and inhalers as the patient has. 5. The patient will need sleep study. The patient has history of pulmonary embolism. 6. Continue Pradaxa. 7. The patient has reflux type of symptoms on Protonix 40 mg twice a day, needs to continue because he has cough at night which could be contributed by that. 8. The patient is advised to rest and the family has expressed the desire to see me in followup and I will see the patient on Monday, 9:30 am. next week. 9. Advised to followup with Dr. Jain. 10. Advised to followup with his primary care, Alisson, Nurse Practitioner. CONDITION: Otherwise stable. [facility]
--- NOTE | 2018-11-30 09:44 | CONS ---
DATE OF SERVICE: 11/23/18 CONSULT FOLLOWUP REASON FOR CONSULTATION: Shortness of breath/COPD exacerbation. HISTORY OF PRESENT ILLNESS: 63-year-old white male hospitalized with COPD exacerbation with acute bronchitis with chronic lung disease, severity of chronic lung disease was such that during the treadmill test, the patient's oxygen saturation dropped from 90% on room air to 87%. The patient has felt good for the past 24 hours with low flow oxygen 2L/cannula/min. He has been put on Cardizem 30 mg t.i.d. which has slowed his sinus rate to 80/min for the first time. According to the who is present in the room, the patient's overall generalized feeling has been a lot better. REVIEW OF SYSTEMS: CONSTITUTIONAL: No night sweats. No fatigue, malaise, lethargy. No fever or chills. HEENT: Eyes: No visual changes. No eye pain. No eye discharge. ENT: No runny nose. No epistaxis. No sinus pain. No sore throat. No odynophagia. No ear pain. No congestion. RESPIRATORY: Mild cough. No congestion. No hemoptysis. CARDIOVASCULAR: No angina symptoms. No CHF symptoms. No atypical chest pain for CAD. No palpitations. No shortness of breath. No PND, no orthopnea. GASTROINTESTINAL: No abdominal pain. No nausea or vomiting. No diarrhea or constipation. No hematemesis. No hematochezia. GENITOURINARY: No urgency. No frequency. No dysuria. No hematuria. No obstructive symptoms. No discharge. No pain. No significant abnormal bleeding. MUSCULOSKELETAL: No musculoskeletal pain. No joint swelling. No arthritis. NEUROLOGICAL: No headache. No neck pain. No syncope. No seizures. No dizziness. PSYCHIATRIC: Not anxious. No depression. No suicidal thoughts. No homicidal thoughts. SKIN: No rash. No lesions. No wounds. ENDOCRINE: No unexplained weight loss. No weight gain. HEMATOLOGIC/LYMPHATIC: No anemia. No purpura. No petechiae. No prolonged or excessive bleeding. No palpable lymph nodes. PHYSICAL EXAMINATION: VITAL SIGNS: Temperature 97.9, pulse 87, respiratory rate 18, BP 145/86, pulse ox 95%. HEENT: Head normocephalic, atraumatic. Eyes: Extraocular muscles are intact. Pupils are equal, round and reactive to light and accommodation. Ears: No lesions. Nose appeared normal. Throat: No exudate or erythema. NECK: Supple. No JVD, no carotid bruit. No lymphadenopathy or thyromegaly. LUNGS: Decreased breath sounds. Increased AP diameter of the chest. Clear to auscultation. Percussion note normal. Chest symmetrical. HEART: S1, S2, no S3. No murmur. No cyanosis or clubbing. No ascites. Pulses: Dorsalis pedis and posterior tibial pulses +1 to +2 bilaterally. ABDOMEN: Soft. Nontender. Bowel sounds active. No CVA tenderness. No mass felt. EXTREMITIES: No pedal edema. Full range of motion of all extremities, equal. NEUROLOGIC: No focal deficit. Cranial nerves II through XII are grossly intact. No headache, no double vision or headache. SKIN: Warm and dry. Intact. Turgor - normal. LYMPHATIC: No palpable lymph nodes/no lymphedema. MUSCULOSKELETAL: Normal joints with no swelling. Muscle tone is normal. ASSESSMENT: 1. COPD WITH EXACERBATION SEEMS TO BE UNDER CONTROL WITH ANTIBIOTICS, NEBS. 2. HYPOXEMIA WITH EXERCISE. THE PATIENT IS GOING TO BE ON HOME OXYGEN. 3. SLEEP APNEA, THE PATIENT HAS IT BUT THE SAYS IT IS EXPENSIVE SO THEY DECLINED. THE PATIENT IS STRONGLY ADVISED TO WEAR OXYGEN AT NIGHT THAT MAY HELP. 4. LVH WITH BORDERLINE HYPERTENSION, MAYBE THE CARDIZEM WILL HELP IN THE WAY OF PULMONARY HYPERTENSION TO SLOW HIS HEART RATE. DOSE MAY BE INCREASED TO 60 MG TWICE A DAY AN OUTPATIENT. 5. HISTORY OF PULMONARY EMBOLISM, THE PATIENT IS ON PRADAXA. PRADAXA SIDE EFFECTS WITH GI BLEED AND INTRACRANIAL BLEED DISCUSSED. THE PATIENT IS STRONGLY ADVISED TO AVOID ALL NONSTEROID ANTIINFLAMMATORIES. RISK FACTORS FOR PULMONARY EMBOLISM DISCUSSED. RECOMMENDATIONS: 1. The patient is nonsmoker for more than 20 years now. 2. Weight loss diet discussed with counseling for diet. 3. The patient will be followed by Dr. Jain and myself. CONDITION: Stable. MTDD
--- NOTE | 2018-11-30 09:55 | CONS ---
CODING FOR BILLING The patient was seen a total of four times. He was a new consult, never seen him before so the coding is different for it. 11/21/18 LEVEL 5 11/22/18 INTERMEDIATE 11/23/18 INTERMEDIATE (the patient was discharged on this date) DALE
--- NOTE | 2018-11-30 11:59 | DS ---
DATE OF SERVICE: 11/23/18 PATIENT IDENTIFICATION: 63-year-old male who presented to the emergency room because of increasing shortness of breath with cough with history of asthma and COPD. HOSPITAL COURSE: FINAL DIAGNOSES: PLAN: 1. TIME SPENT: GREATER THAN 30 MINUTES MTDD
--- NOTE | 2018-11-30 13:50 | DS ---
DATE OF SERVICE: 11/23/18 PATIENT IDENTIFICATION: 63-year-old male who presented to the emergency room because of increasing shortness of breath with cough with a history of asthma and COPD. He stopped smoking 22 years ago. The patient had gained significant amount of weight since then and now weighs 261 lbs. The patient received nebulization in the emergency room as well as Solu-Cortef intravenously. The patient's pulse has climbed to about 110 at times. He had some adverse reaction to the Methylprednisolone intravenously. The patient was continued on the Methylprednisolone and was stopped after his complaints of being anxious and inability to sleep and some nightmares. Cardiology consultation was requested because of exertional dyspnea and history of pulmonary emboli without any DVT. This test was negative for ischemia. Blood pressure response normal. Ventricular ejection fraction on echocardiogram normal according to the cook larder. The patient had some sinus tachycardia and was prescribed Cardizem 30 to be taken three times a day. The pulse rate has decreased from 106 times 110 down to 80. The patient had some microscopic hematuria and so a CT scan of the abdomen and pelvis was done without contrast, renal protocol and the patient has bilateral nephrolithiasis measuring up to 0.8 cm but no hydronephrosis. He also has hepatic steatosis which is not unexpected. Nonspecific bilateral perinephric stranding may represent or reflect senescent changes. Urinalysis has no bacteria, no white cells and negative for nitrites and leukocyte esterase. Bilateral lower extremity venous doppler was negative for venous thrombosis. Repeat CBC and CMP revealed a normal WBC on second hospital day with about the same blood sugar 129.6 and was 132.5. The liver panel normal. The patient's WBC had increased to 21,750 on 11/22/18. The hemoglobin/hematocrit is about the same 12 and 36.8. Neutrophils was 19.8 manual differential showed three stabs, 88 neutrophils. It was felt that the leukocytosis was secondary to the steroid that he was receiving and this was discontinued. The repeat CBC on 11/23/18 showed a decreasing WBC 19,650 now and no differential. The patient was afebrile on admission and remained afebrile until the time of discharge. The patient never had any cyanosis or any significant chest pain. The pain is only when he coughs. The cough seemed to improve with taking Robitussin. I did advise the patient as well as the to get Linares's Menthol and when he had Menthol in his pocket that he should inhale the air to cool down the respiratory tract. Also never to fuss much trying to expel whatever is in the throat. If he would try then his cough would be much more. If he begins coughing he is to drink water either warm, hot or cold. He will be prescribed Tessalon Perles to be taken one perle four times a day and Cardizem as prescribed by the consulting cook larder 30 mg three times a day. The heart rate has decreased to between 70 to 80 plus. The vital signs at time of discharge 1:53 p.m. showed a temperature 98.4, pulse 70, blood pressure 154/79, respiratory rate 16, oxygen saturation 95 on room air. The patient as well as the was advised to eat less in the evening, more food at morning and noon and to eat early also before bedtime. Keep the head of the bed elevated. The patient is alert and oriented at the time of discharge and cooperative and with no cyanosis. Lungs - breath sounds are heard on both sides without any wheezing or rales, somewhat diminished. The neck has no bruit. Heart is audible and regular with good tones, no longer tachycardic. Abdomen is protuberant, no tenderness. Lower extremities unremarkable. The patient denies any pain in the lower extremity with standing. ASSESSMENT: 1. ASTHMA WITH ACUTE EXACERBATION. 2. COPD PROBABLE WITH EXACERBATION. 3. OBESITY, BMI 36.4. 4. PREDIABETES TO HANNA DIABETES. FASTING INSULIN WAS REQUESTED, NO RESULTS AT THIS TIME. 5. LEUKEMOID REACTION TO STEROIDS. 6. MODERATE ANEMIA. 7. PERIPHERAL ARTERIAL DISEASE, ABSENT POSTERIOR TIBIAL PULSES. 8. ADVERSE REACTION TO METHYLPREDNISOLONE. 9. MILD SINUS TACHYCARDIA CORRECTED. 10. HYPERTENSION CONTROLLED. 11. PROBABLE OBSTRUCTIVE SLEEP APNEA (DAYTIME DROWSINESS AND SNORING AT NIGHT). PLAN: 1. The patient is prescribed Cardizem 30 mg three times a day. 2. Tessalon Perles to be taken four times a day. 3. The patient is to keep appointment with Dr. Hewitt and should see him before then if he has any concern or return to the emergency room. I told him that his sleep studies is scheduled in January with Dr. Montejo. I would just leave to Dr. Hewitt whether he wants to advance it. I told the patient that it is not necessary to come and see me at the office since he has decided to stay with Dr. Hewitt. PROGNOSIS: Guarded. TIME SPENT: GREATER THAN 30 MINUTES MTDD
== END 2018-11-23 20:05 | disposition home or self-care (01) ==
LOC: ED 18:03 → MEDSURG B 21:13
PROVIDERS: ADMIT General Practice; ATTEND General Practice
DX: R00.0 Tachycardia, unspecified; J02.9 Acute pharyngitis, unspecified; G47.33 Obstructive sleep apnea (adult) (pediatric); R06.00 Dyspnea, unspecified; Z68.36 Body mass index [BMI] 36.0-36.9, adult; R05 Cough; E66.9 Obesity, unspecified; I10 Essential (primary) hypertension; J45.901 Unspecified asthma with (acute) exacerbation; R09.81 Nasal congestion; I73.9 Peripheral vascular disease, unspecified; J44.1 Chronic obstructive pulmonary disease with (acute) exacerbation; R06.02 Shortness of breath; R06.01 Orthopnea; D64.9 Anemia, unspecified

== ENCOUNTER 2019-02-21 10:48 | Inpatient (IN) ==
--- NOTE | 2019-02-21 11:47 | ED.PDOC ---
General ED Provider: Dr. SHILO KRUSE Chief Complaint: Extremity Swelling/Pain Stated Complaint: Swelling and pain of lt Lower extremity; Denies hx CHF however has cardiomyopathy with reduction of lt ventricular contractility to 30 % Time Seen by Physician: 11:45 Mode of Arrival: Walk-In Information Source: Patient Exam Limitations: No limitations Primary Care Provider: ZULEYKA WILSON Nursing and Triage Documentation Reviewed and Agree: Yes Does patient meet sepsis criteria?: No System Inflammatory Response Syndrome: Not Applicable Sepsis Protocol: For patient's 13 years and over: Temp is 96.8 and below OR 101 and greater Pulse >90 BPM Resp >20/minute Acutely Altered Mental Status Are patient's symptoms suggestive of a new infection, such as: -Pneumonia -Skin, Soft Tissue -Endocarditis -UTI -Bone, Joint Infection -Implantable Device -Acute Abdominal Infection -Wound Infection -Meningitis -Blood Stream Catheter Infection -Unknown PFSH Social History History of recent travel: No Physician Notification Case Discussed Physician Notified: Dr Wilson Time of Notification: 15:22 Physician Notified: Req to admit patient Course Course Hematology/Chemistry: 02/21/19 12:05 02/21/19 12:05 Orders, Labs, Meds: Lab Review 02/21/19 02/21/19 02/21/19 12:05 12:05 12:05 WBC 6.15 RBC 4.22 L Hgb 12.3 L Hct 37.9 L MCV 89.8 MCH 29.1 MCHC 32.5 RDW Coeff of Anais 15.1 H Plt Count 249 Immature Gran % (Auto) 0.2 Neut % (Auto) 62.3 Lymph % (Auto) 22.4 [place] % (Auto) 9.4 Eos % (Auto) 5.2 Baso % (Auto) 0.5 Immature Gran # (Auto) 0.0 Neut # (Auto) 3.8 Lymph # (Auto) 1.4 [place] # (Auto) 0.6 Eos # (Auto) 0.3 Baso # (Auto) 0.0 D-Dimer (Manual) 352.49 Sodium 138.2 Potassium 3.08 L Chloride 99.0 Carbon Dioxide 31.2 H Anion Gap 11.08 BUN 11.3 Creatinine 0.67 Estimated GFR (MDRD) 121.00 BUN/Creatinine Ratio 16.86 Glucose 118.3 H Calcium 9.54 Total Bilirubin 0.45 AST 41.9 ALT 39.8 Alkaline Phosphatase 56.4 Total Protein 7.58 Albumin 4.29 Globulin 3.29 Albumin/Globulin Ratio 1.30 Urine Color Urine Clarity Urine pH Ur Specific [place] Urine Protein Urine Glucose (UA) Urine Ketones Urine Blood Urine Nitrite Urine Bilirubin Urine Urobilinogen Ur Leukocyte Esterase Urine Microscopic RBC Urine Microscopic WBC Ur Squamous Epith Cells 02/21/19 13:15 WBC RBC Hgb Hct MCV MCH MCHC RDW Coeff of Anais Plt Count Immature Gran % (Auto) Neut % (Auto) Lymph % (Auto) [place] % (Auto) Eos % (Auto) Baso % (Auto) Immature Gran # (Auto) Neut # (Auto) Lymph # (Auto) [place] # (Auto) Eos # (Auto) Baso # (Auto) D-Dimer (Manual) Sodium Potassium Chloride Carbon Dioxide Anion Gap BUN Creatinine Estimated GFR (MDRD) BUN/Creatinine Ratio Glucose Calcium Total Bilirubin AST ALT Alkaline Phosphatase Total Protein Albumin Globulin Albumin/Globulin Ratio Urine Color Yellow Urine Clarity Slightly Urine pH 7.5 Ur Specific [place] 1.020 Urine Protein Negative Urine Glucose (UA) Negative Urine Ketones Negative Urine Blood 3+ Urine Nitrite Negative Urine Bilirubin Negative Urine Urobilinogen 0.2 Ur Leukocyte Esterase Negative Urine Microscopic RBC Tntc Urine Microscopic WBC 2-5 Ur Squamous Epith Cells Not present Orders Category Date Time Status EKG-(ED ONLY) Stat CARDIO 02/21/19 11:57 Completed CBC W/ AUTO DIFF Stat LAB 02/21/19 12:05 Completed CMP [COMPREHENSIVE METABOLIC PANEL] Stat LAB 02/21/19 12:05 Completed D-DIMER Stat LAB 02/21/19 12:05 Completed UA [URINALYSIS C & S IF INDICATED] Stat LAB 02/21/19 13:15 Completed CHEST, 2 VIEWS PA & LAT Stat RADS 02/21/19 11:[address] ABD/PEL WO RENAL STONE PROT Stat RADS 02/21/19 13:41 Completed ULTRASOUND VENOUS SCAN LT. LEG [U/S VENOUS SCAN LT. LEG RADS 02/21/19 12:09 Completed ] Stat Vital Signs: Temp Pulse Resp BP Pulse Ox 02/21/19 10:50 98.4 F 76 16 151/77 H 94 L AMY Risk Score AMY Risk Score: Risk Score Odds of by 30D 0 0.1 (0.1-0.2) 1 0.3 (0.2-0.3) 2 0.4 (0.3-0.5) 3 0.7 (0.6-0.9) 4 1.2 (1.0-1.5) 5 2.2 (1.9-2.6) 6 3.0 (2.5-3.6) 7 4.8 (3.8-6.1)
--- NOTE | 2019-02-21 13:07 | DI ---
EXAM: Chest two views HISTORY: Lower extremity edema. FINDINGS: Compared to 11/20/2018. Heart size is within normal limits. No acute infiltrates are see n. No vascular congestion. There is no consolidation, visible pleural fluid or pneumothorax. Bones reveal no acute fracture. IMPRESSION: No acute cardiopulmonary process.
--- NOTE | 2019-02-21 13:17 | US ---
EXAM: Left lower extremity venous Doppler History: Left lower extremity pain and swelling. Technique: Multiple sonographic images through the left lower extremity were obtained. Color duplex Doppler was used to interrogate vascular flow. Findings: The left common femoral, greater saphenous, profunda, superficial femoral, popliteal, bryant alan and posterior tibial veins demonstrate spontaneous flow with normal compression and normal augme ntation. There is left lower extremity subcutaneous edema. Impression: 1. No sonographic evidence for deep venous thrombosis. 2. Left lower extremity subcutaneous edema
--- NOTE | 2019-02-21 14:38 | CT ---
EXAM: CT ABDOMEN AND PELVIS HISTORY: Blood in year and TECHNIQUE: CT abdomen and pelvis without intravenous contrast. Images were reconstructed using 3 mm section thickness. Reformations were prepared. COMPARISON: 11/21/2018 FINDINGS: Liver has fatty infiltration. No focal hepatic or splenic lesions. Gallbladder is absent. Pancreas and adrenal glands are within normal limits. Several calcifications are seen in each kidney consistent with calculi. Largest is on the left measu ring 8 mm. Largest on the right measures about 5 mm. There is no hydronephrosis or evidence of uret eral obstruction. Urinary bladder appears normal. There is mild prostate enlargement. Stomach is within normal limits. There is distal colon diverticulosis, mild to moderate in degree. Nonobstructive bowel gas pattern. There is no ascites. There is a lobulated periumbilical hernia wi th a transverse neck of 2.2 cm, unchanged since previous exam. Bones reveal no acute abnormality. L johnny bases demonstrate discoid opacities posteriorly similar to that previously seen possibly related to atelectasis and / or scarring. IMPRESSION: 1. Bilateral nephrolithiasis. No hydronephrosis or ureteral obstruction. 2. Mild prostate enlargement. 3. Fatty liver. 4. Distal colon diverticulosis. 5. Stable fatty periumbilical hernia.
[2019-02-21] MEDS ORDERED: LASIX IVP SCH (16:30)
[2019-02-21 16:49] VITALS: BMI 41.5
[2019-02-21] MEDS: LASIX IVP SCH (17:28)
[2019-02-21] MEDS: K-DUR PO SCH ×2 (17:28→17:30)
[2019-02-21] MEDS ORDERED: PROAIR HFA IH PRN (17:31)
[2019-02-21] MEDS: PRADAXA PO SCH (21:23)
[2019-02-21] MEDS: CARDIZEM PO SCH (21:26)
[2019-02-21] MEDS: SYMBICORT 160-4.5 MCG INHALER IH SCH (21:49)
[2019-02-22] MEDS: LASIX IVP SCH (06:18)
[2019-02-22] MEDS: PROTONIX PO SCH ×2 (06:18→16:35)
[2019-02-22] MEDS ORDERED: DECADRON 4 MG/ML SDV IM STA (08:49)
[2019-02-22] MEDS ORDERED: LASIX IVP STA (08:50)
--- NOTE | 2019-02-22 09:53 | PCM.PROG ---
Attending Provider: ATTENDING PROVIDER: Dr. ZULEYKA WILSON This patient is seen with Janay Miller, Nurse Practitioner. DATE OF SERVICE: 02/22/19 SUBJECTIVE: This 63 year old /WHITE M was hospitalized 02/21/19. The patient is resting comfortably. Leg edema has improved. The patient would like to go home. Resting. REVIEW OF SYSTEMS: CONSTITUTIONAL: No night sweats. No fatigue, malaise, lethargy. No fever or chills. HEENT: Eyes: No visual changes. No eye pain. No eye discharge. ENT: No runny nose. No epistaxis. No sinus pain. No odynophagia. No congestion. RESPIRATORY: Cough, no congestion. No hemoptysis. Shortness of breath. CARDIOVASCULAR: No angina symptoms. No CHF symptoms. No atypical chest pain for CAD. No palpitations. No orthopnea.. GASTROINTESTINAL: No abdominal pain. No nausea or vomiting. No diarrhea or constipation. No hematemesis. No hematochezia. GENITOURINARY: No urgency. No frequency. No dysuria. No hematuria. No obstructive symptoms. No discharge. No pain. No significant abnormal bleeding. MUSCULOSKELETAL: No musculoskeletal pain; no joint swelling. NEUROLOGICAL: Awake, alert, oriented to time, place and person. No headache. No neck pain. No syncope. No seizures. No dizziness. PSYCHIATRIC: Not anxious. No depression. No suicidal thoughts. No homicidal thoughts. SKIN: No rash. No lesions. No wounds. Leg edema ENDOCRINE: No unexplained weight loss. No weight gain. HEMATOLOGIC/LYMPHATIC: No anemia. No purpura. No petechiae. No prolonged or excessive bleeding. No palpable lymph nodes. PHYSICAL EXAMINATION: GENERAL: The patient is awake, alert and oriented, lying in bed in no distress. VITAL SIGNS: Temperature 97.7 F, Pulse 77, Respiratory Rate 18, BP 154/86, Pulse Ox 93% HEENT: Head normocephalic, atraumatic. Eyes: Extraocular muscles are intact. Pupils are equal, round and reactive to light and accommodation. Ears: No lesions. Nose appeared normal. Throat: No exudate or erythema. NECK: Supple. No JVD, no carotid bruit. No lymphadenopathy or thyromegaly. LUNGS: Clear to auscultation. Percussion note normal. Chest symmetrical. HEART: S1, S2, no S3. No murmurs. No cyanosis or clubbing. No ascites. Pulses: Dorsalis pedis and posterior tibial pulses +1 to +2 both sides. ABDOMEN: Soft. Non-tender. Bowel sounds active. No CVA tenderness. No mass felt. EXTREMITIES: Trace leg edema left lower extremity.Slight swelling left ankle, no redness. Full range of motion of all extremities, equal. NEUROLOGIC: No focal deficit. Cranial nerves II through XII are grossly intact. No headache, no double vision or headache. SKIN: Not dry. Intact. Turgor-normal. LYMPHATIC: No palpable lymph nodes/no lymphedema. MUSCULOSKELETAL: Normal joints with no swelling. Muscle tone is normal. LAB REVIEW: 02/22/19 06:07 02/22/19 06:07 02/22/19 06:07: Sodium 140.0, Potassium 3.40 L, Chloride 100.3, Carbon Dioxide 29.8, Anion Gap 13.30, BUN 11.7, Creatinine 0.63, Estimated GFR (MDRD) 129.00, BUN/Creatinine Ratio 18.57, Glucose 128.2 H, Calcium 9.40, Total Bilirubin 0.59, AST 41.3, ALT 43.1, Alkaline Phosphatase 64.1, Total Protein 7.70, Albumin 4.24, Globulin 3.46, Albumin/Globulin Ratio 1.22 02/22/19 06:07: WBC 7.49, RBC 4.54 L, Hgb 13.2 L, Hct 42.8, MCV 94.3 H, MCH 29.1, MCHC 30.8 L, RDW Coeff of Anais 15.5 H, Plt Count 225, Immature Gran % (Auto) 0.1, Neut % (Auto) 66.7, Lymph % (Auto) 17.9, Donley % (Auto) 8.3, Eos % (Auto) 6.3, Baso % (Auto) 0.7, Immature Gran # (Auto) 0.0, Neut # (Auto) 5.0, Lymph # (Auto) 1.3, Donley # (Auto) 0.6, Eos # (Auto) 0.5, Baso # (Auto) 0.1 02/21/19 13:15: Urine Color Yellow, Urine Clarity Slightly, Urine pH 7.5, Ur Specific [place] 1.020, Urine Protein Negative, Urine Glucose (UA) Negative, Urine Ketones Negative, Urine Blood 3+, Urine Nitrite Negative, Urine Bilirubin Negative, Urine Urobilinogen 0.2, Ur Leukocyte Esterase Negative, Urine Microscopic RBC Tntc, Urine Microscopic WBC 2-5, Ur Squamous Epith Cells Not present 02/21/19 12:05: D-Dimer (Manual) 352.49 02/21/19 12:05: Sodium 138.2, Potassium 3.08 L, Chloride 99.0, Carbon Dioxide 31.2 H, Anion Gap 11.08, BUN 11.3, Creatinine 0.67, Estimated GFR (MDRD) 121.00, BUN/Creatinine Ratio 16.86, Glucose 118.3 H, Calcium 9.54, Total Bilirubin 0.45, AST 41.9, ALT 39.8, Alkaline Phosphatase 56.4, Total Protein 7.58, Albumin 4.29, Globulin 3.29, Albumin/Globulin Ratio 1.30 02/21/19 12:05: WBC 6.15, RBC 4.22 L, Hgb 12.3 L, Hct 37.9 L, MCV 89.8, MCH 29.1, MCHC 32.5, RDW Coeff of Anais 15.1 H, Plt Count 249, Immature Gran % (Auto) 0.2, Neut % (Auto) 62.3, Lymph % (Auto) 22.4, Donley % (Auto) 9.4, Eos % (Auto) 5.2, Baso % (Auto) 0.5, Immature Gran # (Auto) 0.0, Neut # (Auto) 3.8, Lymph # (Auto) 1.4, Donley # (Auto) 0.6, Eos # (Auto) 0.3, Baso # (Auto) 0.0 ASSESSMENT: Please see below. 1. edema left lower extremity 2. History of PE 3. Severe COPD 4. LVH with enlarged LAC PLAN: 1. IV Lasix extra 20mg then discontinued 2. X-ray left foot and ankle 3. Ativan 1mg at night PO 4. 1cc Decadrone IM today Plan and coordination of the patient's care discussed in the presence of Nocturnist Physician and nurse. SCRIBED BY: AVELINO KIM Slat Basket Top Maker scribed while in presence of service performed by Dr. Wilson/Janay Miller APRN on 02/22/19 ([id number])
[2019-02-22] MEDS: MULTIVITAMIN TABLET PO SCH (10:08)
[2019-02-22] MEDS: PRADAXA PO SCH ×2 (10:08→20:05)
[2019-02-22] MEDS: SYMBICORT 160-4.5 MCG INHALER IH SCH ×2 (10:08→20:05)
[2019-02-22] MEDS: HYDROCHLOROTHIAZIDE PO SCH (10:09)
[2019-02-22] MEDS: K-DUR PO SCH ×2 (10:09→16:35)
[2019-02-22] MEDS: VITAMIN D PO SCH (10:09)
[2019-02-22] MEDS: CARDIZEM PO SCH ×2 (10:09→20:05)
[2019-02-22] MEDS: COPPER PO SCH (11:28)
[2019-02-22] MEDS: ZINC PO SCH (11:28)
[2019-02-22] MEDS: VIT E PO SCH (11:28)
[2019-02-22] MEDS: VIT C PO SCH (11:28)
[2019-02-22] MEDS: VIT A PO SCH (11:28)
--- NOTE | 2019-02-22 13:15 | DI ---
EXAM: Three views of the left foot. History: Left foot pain and swelling. Findings: No acute fracture or dislocation. Tiny plantar spur. Joint spaces are relatively preserv ed. There is mild to moderate dorsal soft tissue swelling. No radiographic evidence for osteomyelit is. No radiopaque foreign bodies. Impression: 1. No acute osseous abnormalities. 2. No radiographic evidence for osteomyelitis. 3. Dorsal soft tissue swelling
[2019-02-22] MEDS ORDERED: PRAVACHOL PO SCH (17:00)
[2019-02-22] MEDS ORDERED: DULOXETINE HCL 30 MG PO SCH (17:00)
[2019-02-22] MEDS ORDERED: CYMBALTA PO SCH (17:00)
[2019-02-22] MEDS ORDERED: ATIVAN PO SCH (21:00)
[2019-02-23 05:20] VITALS: BP 130/78; TEMP 97.8
[2019-02-23] MEDS: PROTONIX PO SCH (05:53)
[2019-02-23] MEDS: MULTIVITAMIN TABLET PO SCH (08:33)
[2019-02-23] MEDS: CARDIZEM PO SCH (08:33)
[2019-02-23] MEDS: VITAMIN D PO SCH (08:34)
[2019-02-23] MEDS: K-DUR PO SCH (08:34)
[2019-02-23] MEDS: HYDROCHLOROTHIAZIDE PO SCH (08:34)
[2019-02-23] MEDS: SYMBICORT 160-4.5 MCG INHALER IH SCH (08:36)
[2019-02-23] MEDS: PRADAXA PO SCH (08:36)
[2019-02-23] MEDS: COPPER PO SCH (09:08)
[2019-02-23] MEDS: VIT A PO SCH (09:08)
[2019-02-23] MEDS: VIT C PO SCH (09:08)
[2019-02-23] MEDS: ZINC PO SCH (09:08)
[2019-02-23] MEDS: VIT E PO SCH (09:08)
--- NOTE | 2019-02-25 10:01 | HP ---
DATE OF SERVICE: 02/21/19 REASON FOR HOSPITALIZATION/HISTORY OF PRESENT ILLNESS: 63 year old white male who presented to the emergency room complaining of left lower extremity swelling and pain has a history of dilated cardiomyopathy PAST MEDICAL HISTORY: Hypertension COPD, severe History of multiple pulmonary emboli Dyslipidemia GERD Obesity History of leg edema PAST SURGICAL HISTORY: Previous cervical fusion Appendectomy Cholecystectomy Hernia repair surgery REVIEW OF SYSTEMS: CONSTITUTIONAL: No night sweats. No fatigue, malaise, lethargy. No fever or chills. HEENT: Eyes: No visual changes. No eye pain. No eye discharge. ENT: No runny nose. No epistaxis. No sinus pain. No sore throat. No odynophagia. No ear pain. No congestion. RESPIRATORY: Chronic cough worsening over the past month, no congestion. No hemoptysis. Chronic shortness of breath. Oxygen dependant. CARDIOVASCULAR: No angina symptoms. No CHF symptoms. No atypical chest pain for CAD. No palpitations. No PND. No orthopnea. GASTROINTESTINAL: No abdominal pain. No nausea or vomiting. No diarrhea or constipation. No hematemesis. No hematochezia. GENITOURINARY: No urgency. No frequency. No dysuria. No hematuria. No obstructive symptoms. No discharge. No pain. No significant abnormal bleeding. MUSCULOSKELETAL: No musculoskeletal pain. No joint swelling. No arthritis. NEUROLOGICAL: No headache. No neck pain. No syncope. No seizures. No dizziness. PSYCHIATRIC: Not anxious. No depression. No suicidal thoughts. No homicidal thoughts. SKIN: No rash. No lesions. No wounds. Bilateral lower extremity edema left greater than right. ENDOCRINE: No unexplained weight loss. No weight gain. HEMATOLOGIC/LYMPHATIC: No anemia. No purpura. No petechiae. No prolonged or excessive bleeding. No palpable lymph nodes. PERSONAL/FAMILY/SOCIAL HISTORY: He is . Nonsmoker. No alcohol or illicit drug use. Stopped smoking 22 years ago. Lives at home with his . Hasn't been working. MEDICATIONS: Multivitamin one daily Pradaxa 150mg PO BID Protonix 40mg PO BID Hydrochlorothiazide 12.5mg PO daily Pravachol 40mg PO daily Symbicort one puff INH BID Vision formula softgel 1 capsule PO daily Duloxetine 30mg PO QPM Vitamin D3 2000 unit PO daily ProAir two puff inhalation Q 4 hours PRN Diltiazem 90mg PO BID ALLERGIES: Hydrocodone Tramadol Rofecoxib PHYSICAL EXAMINATION: VITAL SIGNS: Temperature 98.4, heart rate 76, respiratory rate 16, blood pressure 150/77, pulse ox 94% HEENT: Head normocephalic, atraumatic. Eyes: Extraocular muscles are intact. Pupils are equal, round and reactive to light and accommodation. Ears: No lesions. Nose appeared normal. Throat: No exudate or erythema. NECK: Supple. No JVD, no carotid bruit. No lymphadenopathy or thyromegaly. LUNGS: Diminished breath sounds bilaterally. Clear to auscultation. Percussion note normal. Chest symmetrical. HEART: S1, S2, no S3. No murmur. No cyanosis or clubbing. No ascites. Pulses: Dorsalis pedis and posterior tibial pulses +1 to +2 bilaterally. ABDOMEN: Soft. Nontender. Bowel sounds active. No CVA tenderness. No mass felt. EXTREMITIES: +1 lower extremity edema. Trace right lower extremity edema. No redness to the left lower extremity. Full range of motion of all extremities, equal. NEUROLOGIC: No focal deficit. Cranial nerves II through XII are grossly intact. No headache, no double vision or headache. SKIN: Not dry. Intact. Turgor - normal. LYMPHATIC: No palpable lymph nodes/no lymphedema. MUSCULOSKELETAL: Normal joints with no swelling. Muscle tone is normal. LABS: WBC 6.15, hgb 12.3, hct 37.9, plt count 249, sodium 138, potassium 3.0, BUN 11, creatinine 0.6, glucose 118, D-Dimer 352. Urine normal with exception of +3 blood. Bilateral venous shows no evidence of DVT left lower extremity subcutaneous edema. CT abdomen and pelvis shows bilateral nephrolithiasis, no hydronephrosis or uretal obstruction. Prostate enlargement. Fatty Liver. ASSESSMENT: 1. Left lower extremity edema 2. Cardiomyopathy 3. Severe COPD PLAN: 1. We will admit 2. Lasix 40mg IV daily 3. CBC and CMP daily 4. Continue Pradaxa 5. Regular diet 6. Oxygen at 1-2 liters via nasal canula 7. Continue all home medications. Will follow closely. TIME SPENT: More than 70 minutes. MTDD
--- NOTE | 2019-02-26 09:23 | PN ---
DATE OF SERVICE: 02/22/19 SUBJECTIVE: The patient was seen and examined with the Nurse Practitioner. The patient's edema is practically subsided. The patient didn't have any DVT. No evidence of pulmonary embolism. Cardiovascular status is stable. PHYSICAL EXAMINATION: HEENT: Head normocephalic, atraumatic. Eyes: Extraocular muscles are intact. Pupils are equal, round and reactive to light and accommodation. Ears: No lesions. Nose appeared normal. Throat: No exudate or erythema. NECK: Supple. No JVD, no carotid bruit. No lymphadenopathy or thyromegaly. LUNGS: Clear to auscultation. Percussion note normal. Chest symmetrical. HEART: S1, S2, no S3. No murmurs. No cyanosis or clubbing. No ascites. Pulses: Dorsalis pedis and posterior tibial pulses +1 to +2 bilaterally. ABDOMEN: Soft. Nontender. Bowel sounds active. No CVA tenderness. No mass felt. EXTREMITIES: No edema. Full range of motion of all extremities, equal. NEUROLOGIC: No focal deficit. Cranial nerves II through XII are grossly intact. No headache, no double vision or headache. SKIN: Not dry. Intact. Turgor - normal. LYMPHATIC: No palpable lymph nodes/no lymphedema. MUSCULOSKELETAL: Normal joints with no swelling. Muscle tone is normal. PLAN: 1. Advised to lose weight 2. Cut down on salt intake 3. Elevated the legs 4. Will do an echocardiogram 5. Likely discharge tomorrow with lifestyle modification instructions given. TIME SPENT: More than 30 minutes. Plan and coordination of the patient's care discussed in the presence of nurse. DALE
--- NOTE | 2019-02-26 10:35 | PN ---
DATE OF SERVICE: 02/23/19 DISCHARGE NOTE SUBJECTIVE: The patient was hospitalized with leg swelling and shortness of breath with mild cough, leg edema +2 pitting with duration of several days. The patient was seen and examined this morning and doing well. The is by the side of the bed. REVIEW OF SYSTEMS: CONSTITUTIONAL: No night sweats. No fatigue, malaise, lethargy. No fever or chills. HEENT: Eyes: No visual changes. No eye pain. No eye discharge. ENT: No runny nose. No epistaxis. No sinus pain. No sore throat. No odynophagia. No congestion. RESPIRATORY: No cough, no congestion. No hemoptysis. No shortness of breath. CARDIOVASCULAR: No angina symptoms. No CHF symptoms. No atypical chest pain for CAD. No palpitations. No PND. No orthopnea. GASTROINTESTINAL: No abdominal pain. No nausea or vomiting. No diarrhea or constipation. No hematemesis. No hematochezia. GENITOURINARY: No urgency. No frequency. No dysuria. No hematuria. No obstructive symptoms. No discharge. No pain. No significant abnormal bleeding. MUSCULOSKELETAL: No musculoskeletal pain; no joint swelling. NEUROLOGICAL: No headache. No neck pain. No syncope. No seizures. No dizziness. PSYCHIATRIC: Not anxious. No depression. No suicidal thoughts. No homicidal thoughts. SKIN: No rash. No lesions. No wounds. ENDOCRINE: No unexplained weight loss. No weight gain. HEMATOLOGIC/LYMPHATIC: No anemia. No purpura. No petechiae. No prolonged or excessive bleeding. No palpable lymph nodes. PHYSICAL EXAMINATION: HEENT: Head normocephalic, atraumatic. Eyes: Extraocular muscles are intact. Pupils are equal, round and reactive to light and accommodation. Ears: No lesions. Nose appeared normal. Throat: No exudate or erythema. NECK: Supple. No JVD, no carotid bruit. No lymphadenopathy or thyromegaly. LUNGS: Clear to auscultation. Percussion note normal. Chest symmetrical. HEART: S1, S2, no S3. No murmurs. No cyanosis or clubbing. No ascites. Pulses: Dorsalis pedis and posterior tibial pulses +1 to +2 bilaterally. ABDOMEN: Soft. Nontender. Bowel sounds active. No CVA tenderness. No mass felt. EXTREMITIES: Practically no pedal edema. Full range of motion of all extremities, equal. NEUROLOGIC: No focal deficit. Cranial nerves II through XII are grossly intact. No headache, no double vision or headache. SKIN: Not dry. Intact. Turgor - normal. LYMPHATIC: No palpable lymph nodes/no lymphedema. MUSCULOSKELETAL: Normal joints with no swelling. Muscle tone is normal. ASSESSMENT: 1. Leg edema seems to have resolved 2. Chronic lung disease with chronic bronchitis seems to be under control. 1cc Decadron seems to have helped CONDITION STABLE. PLAN: 1. He is going to be taken off Hydrochlorothiazide and put on Lasix and Potassium supplements. 2. Continue the rest of the medications as before 3. He is to be seen in 7 days. 4. The patient was explained about losing weight. 5. Advised to keep the legs up and cut down on salt intake and try to be more active in his lifestyle. TIME SPENT: More than 30 minutes. Plan and coordination of the patient's care discussed in the presence of nurse. DALE
--- NOTE | 2019-02-26 11:36 | DS ---
DATE OF SERVICE: 02/23/19 FINAL DIAGNOSIS: 1. Bilateral leg edema, left more than the right 2. History of pulmonary embolism on Pradaxa 3. Chronic lung disease 4. Morbid obesity with sedentary lifestyle 5. Hypertension 6. Dyslipidemia 7. Mild depression, controlled with Duloxetine 8. Macular degeneration CODE STATUS: Full code DISCHARGE INSTRUCTIONS: Discharge home. The patient is advised to continue all the medications as before. Come back in 7 days. The day of discharge the patient had T4, TSH, Lipids and A1c done reports are pending. MEDICATIONS AT DISCHARGE: Duloxetine Pradaxa Symbicort Albuterol ProAir HFA Pantoprazole Pravastatin Diltazem NEW PRESCRIPTIONS: Lasix 20mg PO daily K-tab 20meq PO daily DISCONTINUED MEDICATIONS: The patient was instructed to discontinue Hydrochlorothiazide. DIET INSTRUCTIONS: Resume as tolerated ACTIVITY: Resume as tolerated SMOKING: Former smoker DISEASE SPECIFIC EDUCATION: New medications Followup Lifestyle Diet HOSPITAL COURSE: 63 year old white male was hospitalized as patient had bilateral leg edema left more than the right. The patient has history of pulmonary embolism. The patient's venous scan was negative. Chest x-ray and other findings were unremarkable. The patient was treated with leg elevation. Advised to cut down on salt. The patient is morbidly obese and admitted that he is not able to see how much salt he is using because of his macular degeneration. The was present in the room throughout the stay in the hospital. The patient's blood pressure has been under control. Blood sugar has been 216 the upper limit of normal. The patient has been given steroids because of his mild cough with probably asthmatic bronchitis. At the time of discharge the patient had no wheezing. Lungs were clear and he felt a lot better. Appetite had improved, leg edema had practically subsided. Calf is nontender. Cardiovascular status is stable. The patient had echocardiogram done in October 2018 which showed normal LV contractility, LVH with mild LA cavity enlargement. There was no change in his CVS status. The patient has been taken off Hydrochlorothiazide and put on Lasix and Potassium. He was thoroughly educated about coronary artery disease, risk factors, how to modify them. The patient is also morbidly obese and advised to have bariatric center referral to which he declined. Diet for the weight loss discussed. CONDITION: Stable. TIME SPENT: More than 60 minutes. [facility]
--- NOTE | 2019-02-26 11:37 | PN ---
02/21/19: Level 5 02/22/19: Intermediate 02/23/19: D as in discharge MTDD
== END 2019-02-23 13:27 | disposition home or self-care (01) | DRG 556 ==
LOC: ED 10:48 → MEDSURG B 15:11
PROVIDERS: ADMIT Internal Medicine; ATTEND Internal Medicine
DX: R60.0 Localized edema; I10 Essential (primary) hypertension; F32.9 Major depressive disorder, single episode, unspecified; J44.9 Chronic obstructive pulmonary disease, unspecified; M79.89 Other specified soft tissue disorders; H35.30 Unspecified macular degeneration; E66.01 Morbid (severe) obesity due to excess calories; Z86.711 Personal history of pulmonary embolism; M79.662 Pain in left lower leg; E78.5 Hyperlipidemia, unspecified; I42.9 Cardiomyopathy, unspecified

== ENCOUNTER 2024-06-27 13:46 | Inpatient (IN) ==
--- NOTE | 2024-06-27 15:06 | DI ---
EXAM: CHEST X-RAY 1 VIEW. HISTORY: Short of breath. COMPARISON: 03/29/24 chest x-ray. FINDINGS: There are increased patchy opacities present within both lung bases with blunting of the c ostophrenic angles. The remaining lungs are clear. The cardiac silhouette is normal. There is no pulmonary edema or pneumothorax. No change in the oss eous structures. IMPRESSION: Bibasilar pneumonia. There is a small bilateral pleural effusion.
[2024-06-27 15:21] LABS: BASOPHILS % (AUTO) 0.1 % (0.0-3.0); EOSINOPHILS % (AUTO) 0.2 % (0.0-7.0); HEMATOCRIT 38.5 % (42.0-52.0); HEMOGLOBIN 12.7 g/dl (14.0-18.0); IMMATURE GRANULOCYTE # (AUTO) 0.1 (0.0-1.0); IMMATURE GRANULOCYTE % (AUTO) 0.8 % (0.0-5.0); LYMPHOCYTES # (AUTO) 1.1 K/uL (0.60-3.4); LYMPHOCYTES % (AUTO) 6.2 (10.0-50.0); MEAN CORPUSCULAR HEMOGLOBIN 29.7 pg (27.0-31.0); MEAN CORPUSCULAR VOLUME 90.2 fl (80.0-94.0); MONOCYTES # (AUTO) 1.1 K/uL (0.4-2.0); MONOCYTES % (AUTO) 6.5 (0-10); NEUTROPHILS # (AUTO) 14.7 K/ul (2.0-6.9); NEUTROPHILS % (AUTO) 86.2 % (42.2-75.2); PLATELET COUNT 228 10^3/uL (140-440); RDW COEFFICIENT OF VARIATION 14.6 % (11.6-14.8); RED BLOOD COUNT 4.27 10^6/ul (4.70-6.10)
[2024-06-27 15:35] LABS: ALANINE AMINOTRANSFERASE 62.7 U/L (0-50); ALBUMIN 3.62 g/dL (3.5-5.0); ALKALINE PHOSPHATASE 103.3 U/L (56-119); ASPARTATE AMINO TRANSFERASE 61.1 U/L (17-59); BILIRUBIN,TOTAL 0.47 mg/dL (0.2-1.3); BLOOD UREA NITROGEN 13.6 mg/dL (9-20); CALCIUM 8.92 mg/dL (8.4-10.2); CHLORIDE 98.8 mmol/L (98-107); CREATININE 0.72 mg/dL (0.60-1.10); GLUCOSE 173.1 mg/dL (74-106); POTASSIUM 3.6 mmol/L (3.5-5.1); SODIUM 136.7 mmol/L (134.5-145); TOTAL PROTEIN 6.78 g/dL (6.3-8.2)
[2024-06-27] MEDS: ROCEPHIN 1 GM/50 ML D5W 1 GM/50 ML BAG IV ONE (15:50)
--- NOTE | 2024-06-27 16:15 | ED.PDOC ---
General ED Provider: Dr. INOCENTE WOOD MD Chief Complaint: Shortness of Air Stated Complaint: 68 years old male with history of COPD on 2 L nasal cannula at home coming emergency room for shortness of breath. Patient was seen with his primary care doctor diagnosed with a respiratory infection treated with oral azithromycin but has not gotten better so he came to the emergency room to get checked. Patient is complaining of cough with yellowish-greenish sputum denies any fever but has some generalized weakness otherwise denies any chest pain no nausea vomiting no changes in bowel or urine. Time Seen by Provider: 06/27/24 14:06 Information Source: Patient Primary Care Provider: ZULEYKA WILSON MD Nursing and Triage Documentation Reviewed and Agree: Yes What is Opioid Naive?: *Opioid Naive implies the patient is not already taking opioids or not chronically receiving opioids on a daily basis. *PRN dosing is not "usually" associated with tolerance. *Patients are at higher risk of over-sedation and aspiration. What is Opioid Tolerant?: *Opioid Tolerance implies less than the expected response to an opioid. *Acquired tolerance is defined by the patient taking 60mg of oral morphine daily (or equianalgesic dose of another opioid) for 1 week or more. *Often associated with chronic pain. *May take more than usual dose to achieve desired pain control. Review of Systems Review Of Systems Constitutional: Reports No symptoms [facility] Medical History Bowel obstruction 2023 K56.609 - Unspecified intestinal obstruction, unspecified as to partial versus complete obstruction (ICD-10) DVT (deep venous thrombosis) I82.409 - Acute embolism and thrombosis of unspecified deep veins of unspecified lower extremity (ICD-10) History of severe acute respiratory syndrome coronavirus 2 (SARS-CoV-2) disease 12/18 Z86.16 - Personal history of COVID-19 (ICD-10) Pulmonary embolism Coumadin I26.99 - Other pulmonary embolism without acute cor pulmonale (ICD-10) Respiratory failure J96.90 - Respiratory failure, unspecified, unspecified whether with hypoxia or hypercapnia (ICD-10) Dizziness resolved with steroids R42 - Dizziness and giddiness (ICD-10) Pneumonia J18.9 - Pneumonia, unspecified organism (ICD-10) Emphysema of lung J43.9 - Emphysema, unspecified (ICD-10) Family History Mother Hypertension Mother Diabetes FATHER Kidney malignancy Social History Smoking and tobacco status: Former smoker Alcohol intake: never Substance use type: does not use Special aniceto needs: No Agree to transfusion: Yes Adopted: No Caregiver/support person: No Foster care: No Household members: spouse Housing: house Marital status: M Lives independently: Yes Daycare: no daycare Number of children: 3 service: No intermediate: No History of recent travel: No Do you think of yourself as: straight/heterosexual Current gender identity: male Seatbelt use: always Drives intoxicated or rides with intoxicated lifter driver: No Water heater temperature set < 120 degrees: Yes Working smoke detector in home: Yes Fire extinguisher in home: Yes Carbon monoxide detector in home: Yes Surgical History History of hernia surgery Z98.89 - Other specified postprocedural states (ICD-10) Previous back surgery C spine surgery 2011 Z98.89 - Other specified postprocedural states (ICD-10) Hx of cholecystectomy Z98.89 - Other specified postprocedural states (ICD-10) History of appendectomy Z98.89 - Other specified postprocedural states (ICD-10) Physical Exam Physical Exam Appearance: Reports Well-appearing Respiratory: Reports Breath sounds diminished (more on lower lobes bilaterally) Cardiovascular: Reports RRR, Pulses normal, No rub and No murmur Musculoskeletal: Reports Normal strength and ROM intact Neurological: Reports Sensation intact and Motor intact Psychiatric: Reports Affect appropriate Course Course 06/27/24 15:14 06/27/24 15:14 Orders, Labs, Meds: Lab Review 06/27/24 15:14 WBC 17.00 H RBC 4.27 L Hgb 12.7 L Hct 38.5 L MCV 90.2 MCH 29.7 MCHC 33.0 RDW Coeff of Anais 14.6 Plt Count 228 Immature Gran % (Auto) 0.8 Neut % (Auto) 86.2 H Lymph % (Auto) 6.2 L Door % (Auto) 6.5 Eos % (Auto) 0.2 Baso % (Auto) 0.1 Neut # (Auto) 14.7 H Lymph # (Auto) 1.1 Door # (Auto) 1.1 Eos # (Auto) 0.0 Baso # (Auto) 0.0 Immature Gran # (Auto) 0.1 Sodium 136.7 Potassium 3.60 Chloride 98.8 Carbon Dioxide 25.0 Anion Gap 16.50 BUN 13.6 Creatinine 0.72 Estimated GFR (MDRD) 109.00 BUN/Creatinine Ratio 18.88 Glucose 173.1 H Lactic Acid 1.01 Calcium 8.92 Total Bilirubin 0.47 AST 61.1 H ALT 62.7 H Alkaline Phosphatase 103.3 Total Protein 6.78 Albumin 3.62 Globulin 3.16 Albumin/Globulin Ratio 1.14 Orders Category Date Time Status BLOOD CULTURE (ED ONLY) Stat LAB 06/27/24 Stop Req BLOOD CULTURE Stat LAB 06/27/24 15:42 Received CBC W/ AUTO DIFF Stat LAB 06/27/24 15:14 Completed CMP [COMPREHENSIVE METABOLIC PANEL] Stat LAB 06/27/24 15:14 Completed LACTIC ACID Stat LAB 06/27/24 15:14 Completed Azithromycin Inj [Zithromax] 500 mg Meds 06/27/24 15:32 Discontinued 0.9 % Sodium Chloride [Sodium Chloride] 250 ml IV ONCE Ceftriaxone/D5w 1 gm Premix [Rocephin 1 gm/50 ml D5w] Meds 06/27/24 15:32 Discontinued 1 gm in 50 ml IV ONCE CXR [CHEST, 1V AP ONLY] Stat RADS 06/27/24 14:06 Completed Medications Discontinued Medications Generic Name Dose Route Start Last Admin Trade Name Benitoq PRN Reason Stop Dose Admin CEFTRIAXONE/D5W 1 GM PREMIX 1 gm in 50 mls @ 100 mls/hr 06/27/24 15:32 06/27/24 15:50 Rocephin 1 Gm/50 Ml D5w IV 06/27/24 16:01 100 mls/hr ONCE ONE Administration Azithromycin 500 mg/ Sodium 250 mls @ 250 mls/hr 06/27/24 15:32 Chloride IV 06/27/24 16:31 ONCE ONE Vital Signs: Temp Pulse Resp BP Pulse Ox 06/27/24 13:52 99.0 F 85 18 146/80 H 94 L Chest x-ray showing bilateral lower lobe pneumonia as per radiology interpretation, CBC showing leukocytosis white cell count 17,000 with left shift lactic acid is normal blood cultures were drawn patient received 1 g of Rocephin and 500 mg of azithromycin IV will need further IV antibiotics spoke with hospitalist on-call Concepcion discussed patient case with her and she accepted the patient be admitted under observation for further IV antibiotics. Discharge Plan Discharge Patient Disposition: PLACED OBSERVATION Discharge Problem: Pneumonia Did you review [place] [employer] ATTENDANT for ALL controlled substances?: Not Applicable ED Provider: INOCETNE WOOD Condition: Stable
[2024-06-27] MEDS: ZITHROMAX 500 MG in SODIUM CHLORIDE 250 ML IV ONE (16:39)
[2024-06-27 17:04] LABS: SARS COV-2 RNA RAPID NAAT NEGATIVE (NEGATIVE)
[2024-06-27] MEDS ORDERED: ZOFRAN SDV IVP PRN (17:09)
[2024-06-27] MEDS ORDERED: DUONEB NEB PRN (17:11)
[2024-06-27 17:22] LABS: PROTHROMBIN TIME 34.7 SEC (9.3-11.0)
[2024-06-27 17:55] VITALS: BMI 34.0
[2024-06-27] MEDS: TYLENOL PO PRN (18:23)
[2024-06-27] MEDS: SYMBICORT 160-4.5 MCG INHALER IH SCH (21:22)
[2024-06-27] MEDS: CARDIZEM PO SCH (21:22)
[2024-06-27] MEDS: PROTONIX PO SCH (21:23)
[2024-06-27] MEDS: K-DUR PO SCH (21:23)
[2024-06-27] MEDS: COUMADIN PO ONE (21:23)
[2024-06-28] MEDS: LASIX TAB PO SCH (05:10)
[2024-06-28 05:30] LABS: BASOPHILS % (AUTO) 0.3 % (0.0-3.0); EOSINOPHILS # (AUTO) 0.2 K/ul (0.0-0.7); EOSINOPHILS % (AUTO) 1.6 % (0.0-7.0); HEMOGLOBIN 12.7 g/dl (14.0-18.0); IMMATURE GRANULOCYTE # (AUTO) 0.1 (0.0-1.0); IMMATURE GRANULOCYTE % (AUTO) 0.9 % (0.0-5.0); LYMPHOCYTES # (AUTO) 1.2 K/uL (0.60-3.4); LYMPHOCYTES % (AUTO) 8.2 (10.0-50.0); MEAN CORPUSCULAR HGB CONC 33.4 (31.8-35.4); MEAN CORPUSCULAR VOLUME 89.8 fl (80.0-94.0); MONOCYTES # (AUTO) 1.1 K/uL (0.4-2.0); MONOCYTES % (AUTO) 7.6 (0-10); NEUTROPHILS # (AUTO) 12.1 K/ul (2.0-6.9); NEUTROPHILS % (AUTO) 81.4 % (42.2-75.2); PLATELET COUNT 269 10^3/uL (140-440); RDW COEFFICIENT OF VARIATION 14.6 % (11.6-14.8); RED BLOOD COUNT 4.23 10^6/ul (4.70-6.10); WHITE BLOOD COUNT 14.82 K/ul (4.2-10.2)
[2024-06-28 05:44] LABS: PROTHROMBIN TIME 25.6 SEC (9.3-11.0)
[2024-06-28 05:46] LABS: ALANINE AMINOTRANSFERASE 73.4 U/L (0-50); ALBUMIN 3.6 g/dL (3.5-5.0); ALKALINE PHOSPHATASE 111.4 U/L (56-119); ASPARTATE AMINO TRANSFERASE 57.3 U/L (17-59); BILIRUBIN,TOTAL 0.59 mg/dL (0.2-1.3); BLOOD UREA NITROGEN 14.8 mg/dL (9-20); CALCIUM 8.75 mg/dL (8.4-10.2); CARBON DIOXIDE 25.2 mmol/L (22-30.0); CHLORIDE 100.4 mmol/L (98-107); CREATININE 0.71 mg/dL (0.60-1.10); GLUCOSE 137.1 mg/dL (74-106); POTASSIUM 3.5 mmol/L (3.5-5.1); SODIUM 137.3 mmol/L (134.5-145); TOTAL PROTEIN 6.69 g/dL (6.3-8.2)
[2024-06-28] MEDS ORDERED: LASIX TAB PO SCH (09:00)
[2024-06-28] MEDS ORDERED: WELLBUTRIN XL PO SCH (09:00)
[2024-06-28] MEDS: LIPITOR PO SCH (09:18)
[2024-06-28] MEDS: CYMBALTA PO SCH (09:18)
[2024-06-28] MEDS: JARDIANCE PO SCH (09:19)
[2024-06-28] MEDS: FLOMAX PO SCH (09:19)
[2024-06-28] MEDS: ZITHROMAX PO SCH (09:19)
[2024-06-28] MEDS: WELLBUTRIN XL PO SCH (09:19)
[2024-06-28] MEDS: SPIRIVA IH SCH (09:20)
[2024-06-28] MEDS: ROCEPHIN 1 GM/50 ML D5W 1 GM/50 ML BAG IV SCH (09:20)
[2024-06-28] MEDS: PROTONIX PO SCH (09:23)
--- NOTE | 2024-06-28 12:59 | PCM ---
Date of Service Date Seen by Provider: 06/28/24 Time Seen by Provider: 09:10 Admit Day/Time Admission Date: 06/27/24 Admission Time: 16:56 Reason for Admission Chief Complaint: PNEUMONIA Hospital Provider Hospital Provider: LEONORA CORONA PA-C, [facility] [place] Primary Care Physician Primary Care Physician: ZULEYKA WILSON MD History of Present Illness History of Present Illness: Patient is a 68 year old male from home who presents to the ER with worsening shortness of breath and cough. Patient has chronic COPD and wears 2 L as needed at home and CPAP at night at baseline. However he has been wearing his oxygen 2 L continuously for the last 2 to 3 days. He was prescribed some prednisone and a Z-Ever by his PCP and had taken about 3 days worth without any improvement. Denies fever, GI symptoms. In the ER he was found to have bilateral pneumonia on chest x-ray. White blood cell count elevated as well. He was requiring 2- 1/2 L. He was given Rocephin and azithromycin. Admitted to [facility]. Today he states he is feeling somewhat better but overall not great. He is still requiring oxygen during the day. White blood cell count mildly improved. He complains of his mouth and nasal passages being dry from the oxygen. Case Discussed With Case Discussed With: Patient's case was discussed with the ER Physicians, Dr. Johnson. [facility] Medical History Bowel obstruction 2023 K56.609 - Unspecified intestinal obstruction, unspecified as to partial versus complete obstruction (ICD-10) DVT (deep venous thrombosis) I82.409 - Acute embolism and thrombosis of unspecified deep veins of uns pecified lower extremity (ICD-10) History of severe acute respiratory syndrome coronavirus 2 (SARS-CoV-2) disease 12/18 Z86.16 - Personal history of COVID-19 (ICD-10) Pulmonary embolism Coumadin I26.99 - Other pulmonary embolism without acute cor pulmonale (ICD-10) Respiratory failure J96.90 - Respiratory failure, unspecified, unspecified whether with hypoxia or hypercapnia (ICD-10) Dizziness resolved with steroids R42 - Dizziness and giddiness (ICD-10) Pneumonia J18.9 - Pneumonia, unspecified organism (ICD-10) Emphysema of lung J43.9 - Emphysema, unspecified (ICD-10) Surgical History History of hernia surgery Z98.89 - Other specified postprocedural states (ICD-10) Previous back surgery C spine surgery 2011 Z98.89 - Other specified postprocedural states (ICD-10) Hx of cholecystectomy Z98.89 - Other specified postprocedural states (ICD-10) History of appendectomy Z98.89 - Other specified postprocedural states (ICD-10) Family History Mother Hypertension Mother Diabetes FATHER Kidney malignancy Social History Smoking and tobacco status: Former smoker Alcohol intake: never Substance use type: does not use Special aniceto needs: No Agree to transfusion: Yes Adopted: No Caregiver/support person: No Foster care: No Household members: spouse Housing: house Marital status: M Lives independently: Yes Daycare: no daycare Number of children: 3 service: No senior living: No History of recent travel: No Do you think of yourself as: straight/heterosexual Current gender identity: male Seatbelt use: always Drives intoxicated or rides with intoxicated mobile lounge driver or operator: No Water heater temperature set < 120 degrees: Yes Working smoke detector in home: Yes Fire extinguisher in home: Yes Carbon monoxide detector in home: Yes Allergies Allergies Allergy/AdvReac Type Severity Reaction Status Date / Time hydrocodone (From Lortab) AdvReac Intermediate Hives Verified 06/27/24 13:52 tramadol AdvReac Intermediate Rash Verified 06/27/24 13:52 rofecoxib (From Vioxx) AdvReac Vomiting Verified 06/27/24 13:52 Current Medications Home Medications Acetaminophen (Acetaminophen 325 Mg Tablet) 650 mg PO Q4H PRN PRN Reason: Mild Pain Last Admin: 06/27/24 18:23 Dose: 650 mg Albuterol/Ipratropium (Ipratropium/Albuterol Vial.Neb) 3 ml NEB RTQ6H PRN PRN Reason: Wheezing Atorvastatin Calcium (Atorvastatin Calcium 20 Mg Tablet) 40 mg PO DAILY AFSHIN Last Admin: 06/28/24 09:18 Dose: 40 mg Azithromycin (Azithromycin 250 Mg Tablet) 500 mg PO DAILY [facility] Stop: 07/01/24 08:59 Last Admin: 06/28/24 09:19 Dose: 500 mg Budesonide/Formoterol Fumarate (Budesonide/Formoterol Fumarate 160/4.5 Mcg Inhaler) 2 puff IH BID [facility] Last Admin: 06/28/24 09:19 Dose: 2 puff Bupropion HCl (Bupropion Hcl 150 Mg Tab.Er.24h) 300 mg PO DAILY [facility] Last Admin: 06/28/24 09:19 Dose: 300 mg Diltiazem HCl (Diltiazem Hcl 30 Mg Tablet) 90 mg PO 2XD [facility] Last Admin: 06/28/24 09:23 Dose: 90 mg Duloxetine HCl (Duloxetine Hcl 30 Mg Capsule.) 60 mg PO DAILY [facility] Last Admin: 06/28/24 09:18 Dose: 60 mg Empagliflozin (Empagliflozin 10 Mg Tablet) 25 mg PO QAM [facility] Last Admin: 06/28/24 09:19 Dose: 25 mg Furosemide (Furosemide 20 Mg Tablet) 20 mg PO QDAC2 [facility] Last Admin: 06/28/24 05:10 Dose: 20 mg CEFTRIAXONE/D5W 1 GM PREMIX (Rocephin 1 Gm/50 Ml D5w) 1 gm in 50 mls @ 100 mls/hr IV DAILY [facility] Stop: 07/01/24 08:59 Last Admin: 06/28/24 09:20 Dose: 100 mls/hr Ondansetron HCl (Ondansetron Hcl/Pf 4 Mg/2 Ml Sdv) 4 mg IVP Q6H PRN PRN Reason: Nausea / Vomiting Pantoprazole Sodium (Pantoprazole Sodium 40 Mg Tablet.Dr) 40 mg PO BIDAC2 [facility] Last Admin: 06/28/24 09:23 Dose: 40 mg Potassium Chloride (Potassium Chloride 20 Meq Tab) 20 meq PO BIDWM2 [facility] Last Admin: 06/28/24 09:19 Dose: 20 meq Sodium Chloride (0.9% Sodium Chloride 10 Ml Disp.Syrin) 1 syr IVF Q8HR [facility] Last Admin: 06/28/24 12:33 Dose: 1 syr Tamsulosin HCl (Tamsulosin Hcl 0.4 Mg Cap.Er.24h) 0.8 mg PO DAILY [facility] Last Admin: 06/28/24 09:19 Dose: 0.8 mg Tiotropium Lawn (Tiotropium Lawn 18 Mcg Cap.W.Dev) 1 cap IH DAILY [facility] Last Admin: 06/28/24 09:20 Dose: 1 cap Warfarin Sodium (Warfarin Sodium 3 Mg Tablet) 6 mg PO QPM [facility] blood sugar diagnostic ([employer] Ultra Test strips) #100 strips 05/16/23 [Rx Confirmed 06/27/24] albuterol sulfate 90 mcg/actuation aerosol inhaler 2 puff inhalation Q4H PRN for wheezing #8.5 grams 10/12/23 [Rx Confirmed 06/27/24] lancets 33 gauge ([employer] CheckTouch Delica Plus Lancet) #200 ea 10/16/23 [Rx Confirmed 06/27/24] bupropion HCl 300 mg 24 hr tablet, extended release See Rx Instructions .Route .COMPLEX #90 tabs 01/01/24 [Rx Confirmed 06/27/24] furosemide 20 mg tablet See Rx Instructions .Route .COMPLEX #90 tabs 01/01/24 [Rx Confirmed 06/27/24] potassium chloride 20 mEq tablet,extended release(part/cryst) See Rx Instructions .Route .COMPLEX #60 tabs 01/01/24 [Rx Confirmed 06/27/24] diltiazem HCl 90 mg tablet 90 mg PO 2XD #180 tabs 01/15/24 [Rx Confirmed 06/27/24] pantoprazole 40 mg tablet,delayed release 40 mg PO 2XD #180 tabs 01/22/24 [Rx Confirmed 06/27/24] atorvastatin 40 mg tablet 40 mg PO DAILY #90 tabs 02/12/24 [Rx Confirmed 06/27/24] duloxetine 60 mg capsule,delayed release 60 mg PO DAILY #90 caps 04/04/24 [Rx Confirmed 06/27/24] tamsulosin 0.4 mg capsule 0.8 mg (2 x 0.4 mg) PO DAILY #60 caps 04/29/24 [Rx Confirmed 06/27/24] warfarin 3 mg tablet 6 mg PO DAILY 04/30/24 [History Confirmed 06/27/24] empagliflozin 25 mg tablet (Jardiance) 25 mg PO QAM #30 tabs 05/15/24 [Rx Confirmed 06/27/24] fluticasone fur. 100 mcg-umeclid 62.5 mcg-vilant 25 mcg inhalat.powder (Trelegy Ellipta) 1 ea inhalation DAILY #60 ea 06/03/24 [Rx Confirmed 06/27/24] ipratropium 0.5 mg-albuterol 3 mg (2.5 mg base)/3 mL nebulization soln 3 ml inhalation Q6H PRN for wheezing #180 mL 06/05/24 [Rx Confirmed 06/27/24] azithromycin 250 mg tablet (Zithromax Z-Ever) See Rx Instructions PO .COMPLEX #6 tabs 06/25/24 [Rx Confirmed 06/27/24] prednisone 10 mg tablet 10 mg PO BID #10 tabs 06/25/24 [Rx Confirmed 06/27/24] Opioid Naive vs. Tolerant Does Patient Take Opioids?: No Is Patient Opioid Naive?: Yes What is Opioid Naive?: *Opioid Naive implies the patient is not already taking opioids or not chronically receiving opioids on a daily basis. *PRN dosing is not "usually" associated with tolerance. *Patients are at higher risk of over-sedation and aspiration. Is Patient Opioid Tolerant?: No What is Opioid Tolerant?: *Opioid Tolerance implies less than the expected response to an opioid. *Acquired tolerance is defined by the patient taking 60mg of oral morphine daily (or equianalgesic dose of another opioid) for 1 week or more. *Often associated with chronic pain. *May take more than usual dose to achieve desired pain control. Review of Systems Constitutional: Reports Fatigue and Weakness; Denies Fever Head: Reports Normocephalic and Atraumatic Cardiovascular: Denies Chest pain, Chest Pressure or Edema Respiratory: Reports Cough and Shortness of air Gastrointestinal: Denies Nausea, Vomiting, Diarrhea, Abdominal pain or Melena Genitourinary: Denies Dysuria or Hematuria Neurological: Denies Headache, Dizziness or Syncope Physical examination Most Recent Vital Signs: Most Recent Vital Signs Temperature 98.5 F 06/28/24 10:00 Temperature Source Temporal Artery Scan 06/28/24 10:00 Temperature Source Temporal Artery Scan 06/27/24 13:52 Pulse Rate 85 06/28/24 10:00 Respiratory Rate 18 06/28/24 10:00 Blood Pressure 140/74 06/28/24 10:00 Blood Pressure Mean 96 06/28/24 10:00 Blood Pressure Left Arm 138/41 06/27/24 17:41 Blood Pressure Location Right Arm 05/02/25 10:00 Blood Pressure Position Sitting 06/28/24 10:00 O2 Sat by Pulse Oximetry 94 L 06/28/24 10:00 Oxygen Delivery Method Nasal Cannula 06/28/24 12:34 Oxygen Flow Rate 2 06/28/24 10:00 Height 5 ft 8 in 06/27/24 17:41 Weight 101.7 kg 06/27/24 17:41 Telemetry Type Remote Telemetry 06/28/24 07:00 Telemetry Monitoring Continues 06/28/24 07:00 Telemetry Heart Rate 78 06/28/24 07:00 Telemetry SPO2 93 06/28/24 07:00 EKG IL Interval 0.15 06/28/24 07:00 EKG QRS Interval 0.09 06/28/24 07:00 Telemetry Strip Reading sr 06/28/24 07:00 Appearance: Positive No Apparent Distress, Alert and Oriented x3 and Ill- Appearing Skin: Positive Haring, Warm and Good Turgor HEENT: Positive Normocephalic and Atraumatic Chest/Lungs: Positive Clear to Auscultation Bilaterally; Negative Rales, Rhonci or Wheezes Heart: Positive RRR GI/: Positive Soft, Nontender, Bowel Sounds Normal and No Distention Neurological: Positive Cranial Nerves Intact, Alert, Oriented and Other Psychiatric: Positive Oriented x4, Appropriate Mood and Appropriate Affect Labs This Visit Labs This Visit: Labs This Visit 06/27/24 06/27/24 06/27/24 15:14 16:44 17:12 WBC 17.00 H RBC 4.27 L Hgb 12.7 L Hct 38.5 L MCV 90.2 MCH 29.7 MCHC 33.0 RDW Coeff of Anais 14.6 Plt Count 228 Immature Gran % (Auto) 0.8 Neut % (Auto) 86.2 H Lymph % (Auto) 6.2 L Ocean % (Auto) 6.5 Eos % (Auto) 0.2 Baso % (Auto) 0.1 Neut # (Auto) 14.7 H Lymph # (Auto) 1.1 Ocean # (Auto) 1.1 Eos # (Auto) 0.0 Baso # (Auto) 0.0 Immature Gran # (Auto) 0.1 PT 34.7 H INR 3.59 Sodium 136.7 Potassium 3.60 Chloride 98.8 Carbon Dioxide 25.0 Anion Gap 16.50 BUN 13.6 Creatinine 0.72 Estimated GFR (MDRD) 109.00 BUN/Creatinine Ratio 18.88 Glucose 173.1 H Lactic Acid 1.01 Calcium 8.92 Total Bilirubin 0.47 AST 61.1 H ALT 62.7 H Alkaline Phosphatase 103.3 Total Protein 6.78 Albumin 3.62 Globulin 3.16 Albumin/Globulin Ratio 1.14 SARS CoV-2 RNA Rapid INGA Negative 06/28/24 05:04 WBC 14.82 H RBC 4.23 L Hgb 12.7 L Hct 38.0 L MCV 89.8 MCH 30.0 MCHC 33.4 RDW Coeff of Anais 14.6 Plt Count 269 Immature Gran % (Auto) 0.9 Neut % (Auto) 81.4 H Lymph % (Auto) 8.2 L Ocean % (Auto) 7.6 Eos % (Auto) 1.6 Baso % (Auto) 0.3 Neut # (Auto) 12.1 H Lymph # (Auto) 1.2 Ocean # (Auto) 1.1 Eos # (Auto) 0.2 Baso # (Auto) 0.0 Immature Gran # (Auto) 0.1 PT 25.6 H D INR 2.60 Sodium 137.3 Potassium 3.50 Chloride 100.4 Carbon Dioxide 25.2 Anion Gap 15.20 BUN 14.8 Creatinine 0.71 Estimated GFR (MDRD) 111.00 BUN/Creatinine Ratio 20.84 Glucose 137.1 H Lactic Acid Calcium 8.75 Total Bilirubin 0.59 AST 57.3 ALT 73.4 H Alkaline Phosphatase 111.4 Total Protein 6.69 Albumin 3.60 Globulin 3.09 Albumin/Globulin Ratio 1.16 SARS CoV-2 RNA Rapid [facility] Imaging Imaging: EXAM: CHEST X-RAY 1 VIEW. HISTORY: Short of breath. COMPARISON: 03/29/24 chest x-ray. FINDINGS: There are increased patchy opacities present within both lung bases with blunting of the costophrenic angles. The remaining lungs are clear. The cardiac silhouette is normal. There is no pulmonary edema or pneumothorax. No change in the osseous structures. IMPRESSION: Bibasilar pneumonia. There is a small bilateral pleural effusion. Review Statement Review Statement: I have independently reviewed and interpreted the labs/EKGs/imaging that were ordered by the ER provider. I have reviewed all outside records that are available currently in our EMR including imaging/notes/labs from previous visits. Plan Plan: 1. Acute hypoxic respiratory failure in setting of bilateral community acquired pneumonia - Wean O2 when able. Pt wears 2L prn only and cpap at night. 2. Bilateral community acquired pneumonia - Cont azith and rocephin. O2. 3. Hx of PE/DVT on chronic anticoagulation - Cont warfarin, daily INR 4. GERD - Cont home meds 5. HFpEF - Cont home meds 6. COPD - not in exacerbation, cont inhalers 7. Hypertension - Cont home meds 8. DMt2 - Last a1c well controlled, 6.5. Cont home mets 9. BPH - Cont home meds DVT Prophylaxis: Warfarin Time Spent: Greater than 80 minutes spent with patient, 50% of the time spent with this patient was devoted to counseling and coordination of care. Advanced [facility] Plannin minutes spent discussing advance care planning. Admit to: Obs to inpatient today Discussed Plan of Care with Dr. Deshawn Wilson. Medications Medication Orders: Medications Ordered Category Date Time Status 0.9 % Sodium Chloride [Saline Flush] Meds 06/27/24 21:00 Active 1 syr IVF Q8HR Acetaminophen [Tylenol] Meds 06/27/24 17:09 Active 650 mg PO Q4H PRN Atorvastatin Calcium [Lipitor] Meds 06/28/24 09:00 Active 40 mg PO DAILY Azithromycin [Zithromax] Meds 06/28/24 09:00 Active 500 mg PO DAILY Budesonide/Formoterol Fumarate [Symbicort 160-4.5 Mcg Meds 06/27/24 21:00 Active Inhaler] 2 puff IH BID Bupropion HCl [Wellbutrin Xl] Meds 06/28/24 09:00 Active 300 mg PO DAILY Ceftriaxone/D5w 1 gm Premix [Rocephin 1 gm/50 ml D5w] Meds 06/28/24 09:00 Active 1 gm in 50 ml IV DAILY Diltiazem HCl [Cardizem] Meds 06/27/24 21:00 Active 90 mg PO 2XD Duloxetine HCl [Cymbalta] Meds 06/28/24 09:00 Active 60 mg PO DAILY Empaglifozin [Jardiance] Meds 06/28/24 09:00 Active 25 mg PO QAM Furosemide [Lasix Tab] Meds 06/28/24 06:00 Active 20 mg PO QDAC2 Ipratropium/Albuterol Neb [Duoneb] Meds 06/27/24 17:11 Active 3 ml NEB RTQ6H PRN Ondansetron HCl/Pf [Zofran Sdv] Meds 06/27/24 17:09 Active 4 mg IVP Q6H PRN Pantoprazole Sodium [Protonix] Meds 06/28/24 09:00 Active 40 mg PO BIDAC2 Potassium Chloride [K-Dur] Meds 06/27/24 20:30 Active 20 meq PO BIDWM2 Tamsulosin HCl [Flomax] Meds 06/28/24 09:00 Active 0.8 mg PO DAILY Tiotropium Lawn [Spiriva] Meds 06/28/24 09:00 Active 1 cap IH DAILY Warfarin Sodium [Coumadin] Meds 06/28/24 17:00 Active 6 mg PO QPM
[2024-06-28] MEDS: OCEAN NASAL SPRAY NAS PRN (15:11)
[2024-06-28] MEDS: COUMADIN PO SCH (17:07)
[2024-06-29 05:17] VITALS: BP 159/87; PULSE 74; RESP 18; TEMP 97.8
[2024-06-29 05:33] LABS: BASOPHILS # (AUTO) 0.1 K/uL (0-0.2); BASOPHILS % (AUTO) 0.4 % (0.0-3.0); EOSINOPHILS # (AUTO) 0.5 K/ul (0.0-0.7); EOSINOPHILS % (AUTO) 3.6 % (0.0-7.0); HEMATOCRIT 38.2 % (42.0-52.0); HEMOGLOBIN 12.6 g/dl (14.0-18.0); IMMATURE GRANULOCYTE # (AUTO) 0.1 (0.0-1.0); IMMATURE GRANULOCYTE % (AUTO) 1.1 % (0.0-5.0); LYMPHOCYTES # (AUTO) 1.1 K/uL (0.60-3.4); MEAN CORPUSCULAR HEMOGLOBIN 29.6 pg (27.0-31.0); MEAN CORPUSCULAR VOLUME 89.9 fl (80.0-94.0); MONOCYTES % (AUTO) 8.2 (0-10); NEUTROPHILS # (AUTO) 9.8 K/ul (2.0-6.9); NEUTROPHILS % (AUTO) 77.7 % (42.2-75.2); PLATELET COUNT 275 10^3/uL (140-440); RDW COEFFICIENT OF VARIATION 14.8 % (11.6-14.8); RED BLOOD COUNT 4.25 10^6/ul (4.70-6.10); WHITE BLOOD COUNT 12.57 K/ul (4.2-10.2)
[2024-06-29 05:45] LABS: PROTHROMBIN TIME 22.9 SEC (9.3-11.0)
[2024-06-29 05:49] LABS: ALANINE AMINOTRANSFERASE 93.3 U/L (0-50); ALBUMIN 3.45 g/dL (3.5-5.0); ALKALINE PHOSPHATASE 122.2 U/L (56-119); BILIRUBIN,TOTAL 0.69 mg/dL (0.2-1.3); CALCIUM 8.83 mg/dL (8.4-10.2); CARBON DIOXIDE 26.9 mmol/L (22-30.0); CHLORIDE 99.6 mmol/L (98-107); CREATININE 0.7 mg/dL (0.60-1.10); POTASSIUM 3.51 mmol/L (3.5-5.1); SODIUM 137.7 mmol/L (134.5-145); TOTAL PROTEIN 6.72 g/dL (6.3-8.2)
--- NOTE | 2024-06-29 09:24 | DCSUM ---
Admission Date Admission Date: 06/27/24 Discharge Date Discharge Date: 06/29/24 Admission Diagnosis Admission Diagnosis: 1. Acute hypoxic respiratory failure in setting of bilateral community acquired pneumonia 2. Bilateral community acquired pneumonia Discharge Diagnosis Discharge Diagnosis: 1. Acute hypoxic respiratory failure in setting of bilateral community acquired pneumonia - improved. 2. Bilateral community acquired pneumonia - improved 3. 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 GERD 5. HFpEF 6. COPD 7. Hypertension 8. DMt2 9. BPH Hospital Provider Hospital Provider: LEONORA CORONA PA-C, [facility] Primary Care Physician Primary Care Physician: ZULEYKA WILSON MD Summary of History and Physical Summary of History and Physical: Patient is a 68 year old male from home who presents to the ER with worsening shortness of breath and cough. Patient has chronic COPD and wears 2 L as needed at home and CPAP at night at baseline. However he has been wearing his oxygen 2 L continuously for the last 2 to 3 days. He was prescribed some prednisone and a Z-Ever by his PCP and had taken about 3 days worth without any improvement. Denies fever, GI symptoms. In the ER he was found to have bilateral pneumonia on chest x-ray. White blood cell count elevated as well. He was requiring 2- 1/2 L. He was given Rocephin and azithromycin. Admitted to [facility] [place]. Today he states he is feeling somewhat better but overall not great. He is still requiring oxygen during the day. White blood cell count mildly improved. He complains of his mouth and nasal passages being dry from the oxygen. Hospital Course Subjective: Patient has done well overall. He has continued his CPAP/oxygen at night and then has been on room air for the most part during the day. He has been treated with Rocephin and azithromycin. He has completed azithromycin especially with the couple doses prior to admission. Will continue cefpodoxime for 3 more days to complete therapy. He has a pulse ox at home to monitor his oxygen saturations and plenty of oxygen available to him should he need it more than his baseline, however he has been doing well. He has a follow-up with his PCP this coming week. All questions and concerns answered. at bedside and they both understand plan of care. Red flags on when to return to the ER discussed. Appearance: Pleasant, No Apparent Distress and Alert HEENT: MMM CVS: Other (RRR) Abdomen: Soft, Non-Tender and No Distention Respiratory: No Accessory Muscle Use Extremities: No Edema Vital Signs: Most Recent Vital Signs Temperature 97.8 F 06/29/24 05:15 Temperature Source Temporal Artery Scan 06/29/24 05:15 Temperature Source Temporal Artery Scan 06/27/24 13:52 Pulse Rate 74 06/29/24 05:15 Respiratory Rate 18 06/29/24 05:15 Blood Pressure 159/87 H 06/29/24 05:15 Blood Pressure Mean 111 06/29/24 05:15 Blood Pressure Left Arm 138/41 06/27/24 17:41 Blood Pressure Location Right Arm 06/29/24 05:15 Blood Pressure Position Supine 06/29/24 05:15 O2 Sat by Pulse Oximetry 94 L 06/29/24 05:41 Oxygen Delivery Method Nasal Cannula 06/29/24 05:41 Oxygen Flow Rate 2 06/29/24 05:41 Height 5 ft 8 in 06/27/24 17:41 Weight 101.7 kg 06/27/24 17:41 Telemetry Type Remote Telemetry 06/29/24 01:00 Telemetry Monitoring Continues 06/29/24 01:00 Telemetry Heart Rate 73 06/29/24 01:00 Telemetry SPO2 94 06/29/24 01:00 EKG NJ Interval 0.14 06/29/24 01:00 EKG QRS Interval 0.07 06/29/24 01:00 Telemetry Strip Reading SR 06/29/24 01:00 Imaging: EXAM: CHEST X-RAY 1 VIEW. HISTORY: Short of breath. COMPARISON: 03/29/24 chest x-ray. FINDINGS: There are increased patchy opacities present within both lung bases with blunting of the costophrenic angles. The remaining lungs are clear. The cardiac silhouette is normal. There is no pulmonary edema or pneumothorax. No change in the osseous structures. IMPRESSION: Bibasilar pneumonia. There is a small bilateral pleural effusion. Lab Results Last 24 Hours: 06/29/24 05:08 WBC 12.57 H RBC 4.25 L Hgb 12.6 L Hct 38.2 L MCV 89.9 MCH 29.6 MCHC 33.0 RDW Coeff of Anais 14.8 Plt Count 275 Immature Gran % (Auto) 1.1 Neut % (Auto) 77.7 H Lymph % (Auto) 9.0 L [place] % (Auto) 8.2 Eos % (Auto) 3.6 Baso % (Auto) 0.4 Neut # (Auto) 9.8 H Lymph # (Auto) 1.1 [place] # (Auto) 1.0 Eos # (Auto) 0.5 Baso # (Auto) 0.1 Immature Gran # (Auto) 0.1 PT 22.9 H INR 2.31 Sodium 137.7 Potassium 3.51 Chloride 99.6 Carbon Dioxide 26.9 Anion Gap 14.71 BUN 13.0 Creatinine 0.70 Estimated GFR (MDRD) 113.00 BUN/Creatinine Ratio 18.57 Glucose 130.0 H Calcium 8.83 Total Bilirubin 0.69 AST 67.0 H ALT 93.3 H Alkaline Phosphatase 122.2 H Total Protein 6.72 Albumin 3.45 L Globulin 3.27 Albumin/Globulin Ratio 1.05 Discharge Instructions Discharge Planning: Discharge Planning > [address] Deshawn Wilson. Discharge Medications: Medications at Discharge (Home Meds & RX) blood sugar diagnostic ([employer] Ultra Test strips) #100 strips 05/16/23 albuterol sulfate 90 mcg/actuation aerosol inhaler 2 puff inhalation Q4H PRN for wheezing #8.5 grams 10/12/23 lancets 33 gauge (CapablueTouch Delica Plus Lancet) #200 ea 10/16/23 bupropion HCl 300 mg 24 hr tablet, extended release See Rx Instructions .Route .COMPLEX #90 tabs 01/01/24 furosemide 20 mg tablet See Rx Instructions .Route .COMPLEX #90 tabs 01/01/24 potassium chloride 20 mEq tablet,extended release(part/cryst) See Rx Instructions .Route .COMPLEX #60 tabs 01/01/24 diltiazem HCl 90 mg tablet 90 mg PO 2XD #180 tabs 01/15/24 pantoprazole 40 mg tablet,delayed release 40 mg PO 2XD #180 tabs 01/22/24 atorvastatin 40 mg tablet 40 mg PO DAILY #90 tabs 02/12/24 duloxetine 60 mg capsule,delayed release 60 mg PO DAILY #90 caps 04/04/24 tamsulosin 0.4 mg capsule 0.8 mg (2 x 0.4 mg) PO DAILY #60 caps 04/29/24 warfarin 3 mg tablet 6 mg PO DAILY 04/30/24 empagliflozin 25 mg tablet (Jardiance) 25 mg PO QAM #30 tabs 05/15/24 fluticasone fur. 100 mcg-umeclid 62.5 mcg-vilant 25 mcg inhalat.powder (Trelegy Ellipta) 1 ea inhalation DAILY #60 ea 06/03/24 ipratropium 0.5 mg-albuterol 3 mg (2.5 mg base)/3 mL nebulization soln 3 ml inhalation Q6H PRN for wheezing #180 mL 06/05/24 cefpodoxime 200 mg tablet 200 mg PO BID 3 days #6 tabs 06/29/24 Discharge Plan Discharge Discharge Orders: Discharge Patient (ONCE); Ordered 06/29/24 Ordered By: LEONORA CORONA Activity Restrictions/Additional Instructions: DISCHARGE TO HOME DX: PNEUMONIA FOLLOW UP WITH PCP THIS WEEK O2 PRN TO KEEP OXYGEN >88% RETURN WITH WORSENING SYMPTOMS PHARMACY: [facility] YOU'VE FINISHED AZITHROMYCIN DOSE, 1 OTHER ANTIBIOTIC SENT TO YOUR PHARMACY TO FINISH Instructions: Pneumonia (DC) Care Plan Goals: Problem: Impaired Respiratory Status Goal: Exhibit optimal respiratory function Instructions: Activities as tolerated Apply oxygen as ordered Elevate head of bed Notify MD of increased congestion Patient Disposition: HOME SELF-CARE Prescriptions: New cefpodoxime 200 mg Tablet 200 mg PO BID 3 Days Qty: 6 0RF Rx Instructions: START 06/30/24 must administer with a meal/food Continued albuterol sulfate 90 mcg/actuation HFA aerosol inhaler 2 puff inhalation Q4H PRN (Reason: for wheezing) Qty: 8.5 1RF potassium chloride 20 mEq tablet,ER particles/crystals See Rx Instructions .ROUTE .COMPLEX Qty: 60 2RF Dose Instruction: TAKE ONE (1) TABLET BY MOUTH TWICE DAILY Rx Instructions: TAKE ONE (1) TABLET BY MOUTH TWICE DAILY bupropion HCl 300 mg tablet extended release 24 hr See Rx Instructions .ROUTE .COMPLEX Qty: 90 1RF Dose Instruction: TAKE ONE (1) TABLET BY MOUTH DAILY Rx Instructions: TAKE ONE (1) TABLET BY MOUTH DAILY furosemide 20 mg tablet See Rx Instructions .ROUTE .COMPLEX Qty: 90 1RF Dose Instruction: TAKE ONE (1) TABLET BY MOUTH EVERY MORNING Rx Instructions: TAKE ONE (1) TABLET BY MOUTH EVERY MORNING diltiazem HCl 90 mg tablet 90 mg PO 2XD Qty: 180 1RF pantoprazole 40 mg tablet,delayed release (DR/EC) 40 mg PO 2XD Qty: 180 1RF atorvastatin 40 mg tablet 40 mg PO DAILY Qty: 90 1RF duloxetine 60 mg capsule,delayed release(DR/EC) 60 mg PO DAILY Qty: 90 1RF tamsulosin 0.4 mg capsule 0.8 mg PO DAILY Qty: 60 2RF Jardiance 25 mg tablet 25 mg PO QAM Qty: 30 5RF Trelegy Ellipta 100-62.5-25 mcg blister with device 1 ea inhalation DAILY Qty: 60 3RF ipratropium-albuterol 0.5 mg-3 mg(2.5 mg base)/3 mL solution for nebulization 3 ml inhalation Q6H PRN (Reason: for wheezing) Qty: 180 10RF warfarin 3 mg tablet 6 mg PO DAILY Discontinued azithromycin [Zithromax Z-Ever] 250 mg tablet See Rx Instructions PO .COMPLEX Qty: 6 0RF Rx Instructions: For 250 mg dose pack: take 500 mg today (day 1), then 250 mg for 4 days (days 2-5) PO prednisone 10 mg tablet 10 mg PO BID Qty: 10 0RF No Action (DME) OneTouch Ultra Test Strip See Rx Instructions .ROUTE .COMPLEX Qty: 100 1RF Dose Instruction: DIRECTED E11.9 DM2 Rx Instructions: DIRECTED E11.9 DM2 test three times daily (DME) lancets [OneTouch Delica Plus Lancet] 33 gauge misc See Rx Instructions .ROUTE .COMPLEX Qty: 200 1RF Dose Instruction: TEST THREE TIMES DAILY Rx Instructions: TEST THREE TIMES DAILY E11.9 DM2 Did you review [place] [employer] for ALL controlled substances?: Not Applicable Discussed opioids are addictive and Narcan is available by prescription or from pharmacy.: No Condition: Stable Referrals: ZULEYKA WILSON MD [Primary Care Provider] - 07/01/24 11:00 am
== END 2024-06-29 10:00 | disposition home or self-care (01) | DRG 193 ==
LOC: ED 13:46 → MEDSURG B 13:46
PROVIDERS: ADMIT Hospitalist; ATTEND Physician Assistant